=== PATIENT | female | born 1950 | race Caucasian/White ===

== ENCOUNTER → 2018-04-19 13:27 | Outpatient (CLI) | payer MEDICARE, SELFPAY ==
--- NOTE | 2018-04-19 13:33 | US_ITS ---
US ULTRASOUND THYROID PROCEDURE: Multiple sagittal & transverse ultrasound images of the thyroid. HISTORY: Follow-up thyroid nodules COMPARISON: 5:30 11/28 and 10/19/2017 ----- FINDINGS: Right thyroid nodules again noted . Normal size. Inhomogeneous pattern bilaterally with very slight lobulated gland. Contour. Mild to moderate color Doppler flow RIGHT LOBE:. 3.8 cm length as 1.9 cm wide x 1.3 cm AP Nodule A: Medial aspect upper pole 8.5 mm x 3 mm AP x 5.4 mm.. similar sized. Nodule B: 10 mm X 4.7 mm solid nodule medial aspect mid right lobe. Similar appearance no significant change when measured from same point Nodule C:vague 4.8 mm slightly hyperechoic nodule at lower pole. LEFT LOBE: 3.2 cm length x 1.2 cm wide X 1 cm AP . ISTHMUS: Normal thickness 3-3.5 mm AP IMPRESSION: 1. right lobe thyroid nodules are again observed. No significant change since prior 2017 study. . follow-up suggested 2. Mild inhomogeneous gland bilaterally. Similar to previous studies.
== END ==
PROVIDERS: PCP Family Medicine; Visit Provider Otolaryngology
DX: E06.9 Thyroiditis, unspecified (principal)
CPT/HCPCS: 76536

== ENCOUNTER → 2018-10-23 14:08 | Outpatient (CLI) | payer MEDICARE, SELFPAY ==
--- NOTE | 2018-10-23 14:11 | US_ITS ---
US thyroid HISTORY: Follow-up thyroid nodules ITS.REASON: hypothyroid ORDERING PHYSICIAN: Tre Juarez MD PATIENT AGE: 68 years Comparison: 04/19/2018 FINDINGS: Overall there is mild heterogeneous echogenicity of the thyroid gland The right lobe of the thyroid gland is 3.8 x 1.4 x 1.3 cm. Nodule A: 8 x 4 mm somewhat heterogeneous unchanged. Nodule B: Mid patellar region 10 x 7 mm unchanged. Nodule C: Lower pole solid-appearing 8 x 5 mm unchanged. The left lobe is 3.3 x 1 x 0.9 cm. No discrete nodule evident on the left. The isthmus has an unremarkable appearance. IMPRESSION: Overall no change in the right thyroid nodules compared to 04/19/2018
[2018-10-23 17:17] LABS: Free T4 (Free Thyroxine) 0.92 ng/dl (0.76-1.46); Thyroid Stimulating Hormone 2.25 uIU/ml (0.358-3.740)
== END ==
PROVIDERS: PCP Family Medicine; Visit Provider Otolaryngology
DX: E03.9 Hypothyroidism, unspecified (principal); E04.9 Nontoxic goiter, unspecified
CPT/HCPCS: 36415; 76536; 84439; 84443; 84445; 86376

== ENCOUNTER → 2018-10-23 15:00 | Outpatient (CLI) | payer MEDICARE, SELFPAY | PROVIDERS: Visit Provider Otolaryngology | DX: E03.9 Hypothyroidism, unspecified (principal); E04.9 Nontoxic goiter, unspecified | CPT/HCPCS: 36415; 76536; 84439; 84443; 84445; 86376 ==

== ENCOUNTER → 2019-04-14 10:32 | Outpatient (CLI) | payer MEDICARE, SELFPAY ==
--- NOTE | 2019-04-14 10:35 | US_ITS ---
US thyroid HISTORY: ITS.REASON: Goiter ORDERING PHYSICIAN: Tre Juarez MD PATIENT AGE: 68 years Comparison: 10/23/2018 FINDINGS: The right lobe measures 4.1 x 1.3 x 1.2 cm. In the upper pole there is a oval hypoechoic nodule measuring 7 mm unchanged. In the mid polar region there is a 9 x 7 mm slightly hypoechoic nodule unchanged. In the lower pole there is a 5 x 4 mm slightly hypoechoic nodule unchanged The left lobe is 3.3 x 1.1 x 1.2 cm. There is a 4 x 3 mm slightly hypoechoic nodule in the mid polar region. This was not demonstrated on the previous exam. The isthmus is slightly thickened on the left. IMPRESSION: Overall no change in the thyroid nodules in both lobes are described above. There are low level of suspicion for malignancy
== END ==
PROVIDERS: PCP Family Medicine; Visit Provider Otolaryngology
DX: E04.9 Nontoxic goiter, unspecified (principal)
CPT/HCPCS: 76536

== ENCOUNTER → 2019-06-06 08:45 | Outpatient (CLI) | payer MEDICARE, SELFPAY ==
--- NOTE | 2019-06-06 08:49 | MM_ITS ---
MM Dig screening mamm BI w/CAD CAD Screening COMPARISON: None, this is baseline INDICATION: There is a history of breast cancer patient's mother age at diagnosis uncertain TECHNIQUE: Standard CC and MLO images were obtained. R2 CAD reviewed. FINDINGS: Mild to moderate fibroglandular densities are seen in the central portions of both breasts. There is a possible asymmetric density with irregular borders central portion left breast best seen on the CC projection. This likely is a summation shadow however recommend the patient return for spot compression views in MLO and CC projection and possibly ultrasound of this proves to be a true lesion. There are couple benign-appearing calcifications in each breast. There is a mole marker right breast. IMPRESSION: Moderate breast density with possible asymmetric density with irregular borders left breast BI-RADS Category: 0 Need Additional Imaging Evaluation RECOMMENDED FOLLOW-UP: IMM - IMMEDIATE FOLLOW-UP RECOMMENDED (A letter has been sent to the patient regarding results of the study.)
== END ==
PROVIDERS: PCP Family Medicine; Visit Provider Family Medicine
DX: Z12.31 Encounter for screening mammogram for malignant neoplasm of breast (principal)
CPT/HCPCS: 77067

== ENCOUNTER → 2019-06-30 13:34 | Outpatient (CLI) | payer MEDICARE, SELFPAY ==
--- NOTE | 2019-06-30 13:36 | MM_ITS ---
PROCEDURE: MM DIG MAMM DX UNILAT LT CAD CLINICAL INDICATION: Follow-up abnormal mammogram COMPARISON: DIG MAMM-SCREEN ARLENE from 06/06/2019 US BREAST LT COMPLETE from 06/30/2019 TECHNIQUE: Standard CC and MLO images were obtained. R2 CAD reviewed. FINDINGS: There is average fibroglandular tissue. Scattered small asymmetric areas are present in the left breast. There was an area of asymmetry in the upper aspect of the left breast initially seen on the spot compression view which appeared to compress out on the focal spot compression view. No malignant appearing microcalcifications are evident. The Left breast ultrasound: 4 mm complex cyst at 12 o'clock, 3 mm cyst at 1 o'clock, 5 mm cyst at 8 o'clock. Small nodes are present in the axilla IMPRESSION: Probably benign findings. Scattered asymmetries may correspond to the complex cyst noted on ultrasound. Recommend six-month mammographic and sonographic follow-up BI-RAD Category: 3 Probably Benign Finding Short Term Follow-up FOLLOW-UP: 6M 6 Month Follow-up (A letter has been sent to the patient regarding results of the study.) Dictated by: Elmo Beard MD 07/07/2019 06:33 Signed by: <Electronically signed by Elmo Beard MD in [place]> 07/07/2019 06:33
--- NOTE | 2019-06-30 13:37 | US_ITS ---
PROCEDURE: US BREAST LT COMPLETE CLINICAL INDICATION: ABNORMAL MAMM COMPARISON: MM DIG MAMM DX UNILAT LT CAD from 06/30/2019 FINDINGS: 4 mm complex cyst at 12 o'clock, 3 mm cyst at 1 o'clock, 5 mm cyst at 8 o'clock. Small nodes are present in the axilla IMPRESSION: Probably benign findings. Please see mammogram report from the same day. Recommend six-month mammographic and sonographic follow-up Dictated by: Elmo Beard MD 07/07/2019 06:35 Signed by: <Electronically signed by Elmo Beard MD in [place]> 07/07/2019 06:35
== END ==
PROVIDERS: PCP Family Medicine; Visit Provider Family Medicine
DX: R92.8 Other abnormal and inconclusive findings on diagnostic imaging of breast (principal)
CPT/HCPCS: 76641; 77065

== ENCOUNTER → 2019-10-23 12:46 | Outpatient (CLI) | payer MEDICARE, SELFPAY ==
--- NOTE | 2019-10-23 12:47 | US_ITS ---
PROCEDURE: US THYROID CLINICAL INDICATION: Goiter Follow-up thyroid nodules COMPARISON: THY US thyroid from 04/14/2019 FINDINGS: The right lobe is 4 x 1.4 x 1.1 cm. No change 7 mm slightly hypoechoic oval nodule upper pole medially. No change 8 x 6 mm slightly hypoechoic nodule upper pole medially no change 4 mm mixed nodule lower pole The left lobe is 3.3 x 1 x 1 cm. No change 4 mm mixed nodule mid polar region. IMPRESSION: No change small bilateral thyroid nodules. Dictated by: Elmo Beard MD 10/24/2019 05:31 Electronically signed by Elmo Beard MD in [place] 10/24/2019 05:31
== END ==
PROVIDERS: PCP Family Medicine; Visit Provider Otolaryngology
DX: E03.9 Hypothyroidism, unspecified (principal); E04.9 Nontoxic goiter, unspecified
CPT/HCPCS: 76536

== ENCOUNTER → 2019-11-03 14:08 | Outpatient (CLI) | payer MEDICARE, SELFPAY ==
--- NOTE | 2019-11-03 14:13 | XR_ITS ---
PROCEDURE: XR DEXA AXIAL SKELETON CLINICAL INDICATION: POST MENOPAUSAL COMPARISON: No exams were available for comparison FINDINGS: Lumbar spine (L1 through L4), BMD 0.923, T-score -1.1. Left hip (neck), BMD 0.776, T-score -0.7 Left hip (Total), BMD 0.880, -0.5. Right hip (neck), BMD 0.760, T-score -0.7. Right hip (Total), BMD 0.886, T-score -0.5. IMPRESSION: Borderline mild osteopenia. Dictated by: Keegan Urbano 11/03/2019 18:41 Electronically signed by Keegan Urbano in [place] 11/03/2019 18:41
== END ==
PROVIDERS: PCP Family Medicine; Visit Provider Family Medicine
DX: Z13.820 Encounter for screening for osteoporosis (principal); Z78.0 Asymptomatic menopausal state
CPT/HCPCS: 77080

== ENCOUNTER → 2020-01-01 12:44 | Outpatient (CLI) | payer MEDICARE, SELFPAY ==
--- NOTE | 2020-01-01 12:49 | US_ITS ---
PROCEDURE: US BREAST LT COMPLETE CLINICAL INDICATION: ABNORMAL MAMM COMPARISON: US BREAST LT COMPLETE from 06/30/2019 FINDINGS: There are multiple hypoechoic probable complex cystic nodules including at the 12 o'clock position near the nipple 3.0 x 1.6 x 2.8 millimeters, and at 1 o'clock 3.1 by 3.9 x 2.7 millimeter hypoechoic nodule, and at 6 o'clock a 2.9 by 5.9 x 3.1 millimeter, and at 8 o'clock a 4.3 by 3.8 x 2.5 millimeter. These all contain some internal echoes and do not fulfill strict criteria for a benign simple cyst. All of the lesions are similar to previous exam 06/30/2019 except for the 1 at 6 o'clock. This appears new. Small nodes are seen in the axilla. IMPRESSION: BI-RADS category 3 probably benign six-month follow-up exam is recommended. Dictated by: Cisco Lizama 01/01/2020 14:47 Electronically signed by Cisco Lizama in [place] 01/01/2020 14:47
--- NOTE | 2020-01-01 12:49 | MM_ITS ---
PROCEDURE: MM DIG MAMM DX UNILAT LT CAD CLINICAL INDICATION: ABNORMAL MAMM COMPARISON: DIG MAMM-SCREEN ARLNEE from 06/06/2019 MM DIG MAMM DX UNILAT LT CAD from 06/30/2019 TECHNIQUE: Standard CC and MLO images and 3D Tomosynthesis was obtained. R2 CAD reviewed. FINDINGS: The breast is dense. Circumscribed nodule in the left breast at approximately 6 o'clock measures approximately 6 millimeters. 5 millimeter nodule in the upper outer quadrant is noted best seen on the MLO view. Findings are not significantly changed. Benign appearing lymph nodes project over the left pectoral muscle. Benign appearing calcifications are noted. IMPRESSION: BI-RAD Category: 3 probably benign FOLLOW-UP: Six-month follow-up exam is recommended. (A letter has been sent to the patient regarding results of the study.) Dictated by: Cisco Lizama 01/01/2020 15:08 Electronically signed by Cisco Lizama in [place] 01/01/2020 15:08
== END ==
PROVIDERS: PCP Family Medicine; Visit Provider Family Medicine
DX: R92.8 Other abnormal and inconclusive findings on diagnostic imaging of breast (principal)
CPT/HCPCS: 76641; 77061; 77065; G0279

== ENCOUNTER → 2020-04-26 10:13 | Outpatient (CLI) | payer MEDICARE, SELFPAY ==
--- NOTE | 2020-04-26 10:20 | XR_ITS ---
PROCEDURE: XR LUMBAR SPINE MIN 4V CLINICAL INDICATION: LUMBAGO W/SCIATICA Low back, left-sided back pain COMPARISON: No exams were available for comparison FINDINGS: No fracture or dislocation. There is 2 mm anterolisthesis of L4 on L5. Mild degenerative disc disease is present at L5-S1. Small ventral osteophytes are present and there is mild facet arthritic change at L4-L5 and S1. There is sclerosis involving the left SI joint inferiorly with hypertrophic change. IMPRESSION: Degenerative changes including left-sided sacroiliitis Dictated by: Elmo Beard MD 04/26/2020 14:06 Electronically signed by Elmo Beard MD in [place] 04/26/2020 14:06
== END ==
PROVIDERS: PCP Family Medicine; Visit Provider Family Medicine
DX: M54.42 Lumbago with sciatica, left side (principal)
CPT/HCPCS: 72110

== ENCOUNTER → 2020-07-05 12:42 | Outpatient (CLI) | payer MEDICARE, SELFPAY ==
--- NOTE | 2020-07-05 12:45 | MM_ITS ---
PROCEDURE: MM DIG MAMM BI DX W/CAD Digital Breast Tomosynthesis Included CLINICAL INDICATION: ABN MAMM There is a history of breast cancer in the patient's mother. This is a six-month follow-up exam of the left breast to evaluate stability of 2 nodular lesions. COMPARISON: MG DIG MAMM-SCREEN ARLENE from 06/06/2019 MG MM DIG MAMM DX UNILAT LT CAD from 06/30/2019 MG MM DIG MAMM DX UNILAT LT CAD from 01/01/2020 TECHNIQUE: Standard CC and MLO images and 3D Tomosynthesis was obtained. R2 CAD reviewed. FINDINGS: New moderate fibroglandular densities are seen in the central portions of both breasts and the findings are fairly symmetrical bilaterally. There are couple of benign-appearing microcalcifications in each breast. There is a mole marker on each breast and there is a stable tiny nodular density central portion left breast. There are slightly inverted nipples bilaterally but this has been noted previously. There is no suspicious lesion and no suspicious microcalcifications. IMPRESSION: Fibrofatty parenchyma with no suspicious lesions seen BI-RAD Category: 2 Benign Finding(s) FOLLOW-UP: 1YR 1 Year Follow-up (A letter has been sent to the patient regarding results of the study.) Dictated by: Dr. Naresh Kiser MD 07/11/2020 17:21 Dr. Naresh Kiser MD in [place] 07/11/2020 17:21
--- NOTE | 2020-07-05 12:45 | US_ITS ---
PROCEDURE: US BREAST LT COMPLETE CLINICAL INDICATION: ABN MAMM COMPARISON: US US BREAST LT COMPLETE from 01/01/2020 MG MM DIG MAMM BI DX W/CAD from 07/05/2020 FINDINGS: Somewhat diffuse heterogenic echogenicity is seen throughout the breast. There are multiple hypoechoic lesions representing complex cysts as noted previously. The cystic lesion at the 12 o'clock position near the nipple is stable and unchanged in size and overall appearance from the previous exam. The 1 o'clock cystic lesion is stable as well. Additional small similar-appearing hypoechoic lesions are seen at the 6 and 8 o'clock position near the nipple there is no suspicious solid lesions seen. There are normal appearing nodes in the axilla. IMPRESSION: Stable multiple benign-appearing cystic lesions some which appear to be complex with internal echoes and no additional follow-up is indicated at this time. Dictated by: Dr. Naresh Kiser MD 07/13/2020 10:46 Dr. Naresh Kiser MD in [place] 07/13/2020 10:46
== END ==
PROVIDERS: PCP Family Medicine; Visit Provider Family Medicine
DX: R92.8 Other abnormal and inconclusive findings on diagnostic imaging of breast (principal)
CPT/HCPCS: 76641; 77062; 77066; G0279

== ENCOUNTER → 2021-01-18 15:53 | Outpatient (CLI) | payer MEDICARE, SELFPAY ==
--- NOTE | 2021-01-18 16:00 | XR_ITS ---
PROCEDURE: XR FOOT RT MIN 3V CLINICAL INDICATION: RT FOOT PAIN COMPARISON: CR FTL3 FOOT-LT-3 VIEWS from 03/29/2017 CR FTL3 FOOT-LT-3 VIEWS from 06/15/2017 CR FTL3 FOOT-LT-3 VIEWS from 06/28/2017 FINDINGS: No fracture or dislocation. No lytic or blastic change. There is normal mineralization. The joint spaces are well-preserved. No significant degenerative/arthritic changes. No erosive changes evident. Other findings:None. IMPRESSION: No acute findings. Dictated by: Elmo Beard MD 01/18/2021 17:37 Elmo Beard MD in [place] 01/18/2021 17:37
== END ==
PROVIDERS: PCP Family Medicine; Visit Provider Nurse Practitioner
DX: M79.671 Pain in right foot (principal)
CPT/HCPCS: 73630

== ENCOUNTER → 2021-08-05 15:17 | Outpatient (CLI) | payer MEDICARE, SELFPAY ==
--- NOTE | 2021-08-05 15:19 | MM_ITS ---
PROCEDURE: MM DIG SCREENING MAMM BI W/CAD Digital Breast Tomosynthesis Included CLINICAL INDICATION: SCREENING There is a history of breast cancer in patient's mother. COMPARISON: MG MM DIG MAMM DX UNILAT LT CAD from 06/30/2019 MG MM DIG MAMM DX UNILAT LT CAD from 01/01/2020 MG MM DIG MAMM BI DX W/CAD from 07/05/2020 TECHNIQUE: Standard CC and MLO images and 3D Tomosynthesis was obtained. R2 CAD reviewed. FINDINGS: Mild scattered fibroglandular densities are seen throughout both breasts. Is a mole marker on each breast. CAD markings on each breast for we reviewed and they appear to be benign and mostly due to arterial calcification. There is a benign-appearing calcification in each breast. Is no suspicious lesion and no suspicious microcalcifications. IMPRESSION: Fibrofatty parenchyma with no suspicious lesions seen BI-RAD Category: 2 Benign Finding(s) FOLLOW-UP: 1YR 1 Year Follow-up (A letter has been sent to the patient regarding results of the study.) Dictated by: Dr. Naresh Kiser MD 08/18/2021 13:40 Dr. Naresh Kiser MD in [place] 08/18/2021 13:40
== END ==
PROVIDERS: PCP Family Medicine; Visit Provider Family Medicine
DX: Z12.31 Encounter for screening mammogram for malignant neoplasm of breast (principal)
CPT/HCPCS: 77063; 77067

== ENCOUNTER → 2021-10-19 09:16 | Outpatient (CLI) | payer MEDICARE, SELFPAY ==
--- NOTE | 2021-10-19 09:19 | XR_ITS ---
PROCEDURE: XR DEXA AXIAL SKELETON CLINICAL HISTORY: SCREENING FOR OSTEOPOROSIS COMPARISON: No exams were available for comparison FINDINGS: The right hip BMD is 0.772 with a T-score of -0.7. The left hip BMD is 0.725 with a T-score of -1.1. The lumbar spine BMD is 1.067 with a T-score of 0.2. IMPRESSION: This patient is considered osteopenic according to the World Health Organization criteria. Bone density is between 10 and 25 percent below young normal. Fracture risk is moderate. Treatment is advised. Based on these results a follow-up exam is recommended in 2 year. Dictated by: Elmo Beard MD 10/19/2021 16:11 Elmo Beard MD in [place] 10/19/2021 16:11
== END ==
PROVIDERS: PCP Family Medicine; Visit Provider Family Medicine
DX: Z13.820 Encounter for screening for osteoporosis (principal); Z78.0 Asymptomatic menopausal state
CPT/HCPCS: 77080

== ENCOUNTER 2021-10-31 20:42 | Emergency (ER) | payer MEDICARE, SELFPAY ==
[2021-10-31 20:45] VITALS: BP 130/70; PULSE 87; RESP 16; TEMP 37.2; O2SAT 98; BMI 27.3
[2021-10-31 20:52] VITALS: BP 130/70; PULSE 87; RESP 16; TEMP 37.2; O2SAT 98; BMI 27.4
[2021-10-31 21:52] VITALS: BP 130/70; PULSE 87; RESP 16; TEMP 37.2; O2SAT 98
--- NOTE | 2021-10-31 22:00 | HMH.EDUTC ---
[facility] [place] Clinical Impression: Sinusitis Qualifiers: Sinusitis location: unspecified location Chronicity: unspecified Qualified Code(s): J32.9 - Chronic sinusitis, unspecified Disposition: Home, Self-Care Condition on Discharge: Good Instructions: Sinusitis, DI for Sinusitis, DI for Cough -- Adult, Azithromycin, Benzonatate Additional Instructions: *Monitor Temp, Over the counter Motrin or Tylenol as directed/as needed Tylenol every 4 hours and Motrin every 6 hours (as long as your family doctor has told you that you can take it) for fever or pain. and straight to ER if unable to lower temp less than 101.0 after medication given *Warm salt water gargles may help to soothe the throat *Throat Lozenges *Warm fluids like tea with honey may help to soothe the throat *Sleep elevated *Humidifier/Vaporizer Take medication as prescribed Return if needed Follow up IMMEDIATELY for new or worsening symptoms or no Noticeable improvement over the next 48-72 hours. 911 for difficulty breathing or swallowing You were tested for today for Upper Respiratory panel with COVID19 your test result should be back in the next 24-48 hours, you Check your results on the [facility] [employer] [facility] Portal for your COVID test results if you have trouble logging on you may call You was given a handout with instructions for Self Quarantine and Self isolation for while you wait on test results and what to do if they are positive If you are positive the Health Dept will be contacting you also Make sure to take your Vitamins Vit. C Vit D and Zinc if you can take them Prescriptions: Benzonatate [Benzonatate 100mg cap] 100 mg PO Q8HP PRN #15 cap PRN Reason: Cough Transmission Status: Pending to [facility] # Azithromycin [Z-Francisco 250mg Tab] 250 mg PO DIRECTED #6 tab Transmission Status: Pending to [facility] # Referrals: Rashel Almanzar MD [Primary Care Provider] - As needed Medical Decision Making - Chaim Inquiry Pt receiving controlled substance: No Chaim was queried for this patient: No Vital Signs: 10/31/21 20:45 10/31/21 20:52 10/31/21 21:52 Temperature 98.9 F 98.9 F 98.9 F Temperature Source Oral Oral Pulse Rate 87 Pulse Rate [Right] 87 87 Respiratory Rate 16 16 16 Blood Pressure 130/70 Blood Pressure [Right Arm] 130/70 130/70 Blood Pressure Mean [Right Arm] 90 90 Blood Pressure Source [Right Arm] Automatic Cuff Automatic Cuff Blood Pressure Position [Right Arm] Sitting Sitting 02 Sat by Pulse Oximetry 98 98 Oxygen Delivery Method Room Air Room Air Orders (Tests/Meds): ORDERS Category Date Time Status Covid-19 Nasal PCR ([facility]) Routine Lab 10/31/21 21:02 [place] [facility] [place] - General Stated complaint: sore throat cough fever Time Seen by Provider: 10/31/21 22:00 Mode of Arrival: Ambulatory Source of Information: Patient Limitations: No Limitations Description of Symptoms (Recalled from Triage Doc. by RN): PT advises she has a cough and sore throat since last Sunday. Wants a covid test and something for her cough - History of Present Illness Provider Complaint: Patient states that she has had cough sore throat, sinus congestion and pressure for about a week States that tonight she was still having a cough and wanted to come in and get tested for COVID and get something for her cough and get checked - Related Data Home Medications Medication Instructions Recorded Confirmed levothyroxine 50 mcg tablet 50 mcg PO DAILY 90 Days #90 04/25/18 10/30/19 lisinopril 10 10 - 12.5 mg PO DAILY 90 Days #90 04/25/18 10/30/19 mg-hydrochlorothiazide 12.5 mg tablet Cholecalciferol (Vitamin D3) 4,000 unit PO DAILY 05/12/19 10/30/19 [Vitamin D3] Cyanocobalamin (Vitamin B-12) 1,000 mcg PO DAILY 05/12/19 10/30/19 [Vitamin B-12] Folic Acid/Vit B Complex and C 400 mcg PO DAILY 05/12/19 10/30/19 [Super B-Complex Folic-Vit C Tb] Krill/Om3/Dha/Epa/Om6/Lip/Astx 1 each PO SHILA
== END 2021-10-31 22:26 | disposition home or self-care (01) ==
LOC: ER 20:49 → UTC 20:50
PROVIDERS: Emergency Provider Nurse Practitioner; PCP Family Medicine
DX: J32.9 Chronic sinusitis, unspecified (principal); I10 Essential (primary) hypertension; E03.9 Hypothyroidism, unspecified; Z20.822 Contact with and (suspected) exposure to COVID-19; Z79.899 Other long term (current) drug therapy
CPT/HCPCS: G0463; 99202; C9803; U0003; U0005

== ENCOUNTER → 2021-11-28 14:14 | Outpatient (CLI) | payer MEDICARE, SELFPAY | PROVIDERS: Visit Provider Nurse Practitioner | DX: U07.1 COVID-19 (principal) | CPT/HCPCS: C9803; U0003; U0005 ==

== ENCOUNTER → 2022-07-12 16:27 | Outpatient (CLI) | payer MEDICARE, SELFPAY ==
--- NOTE | 2022-07-12 16:32 | MR_ITS ---
PROCEDURE INFORMATION: Exam: MR Lumbar Spine Without Contrast Exam date and time: 07/12/2022 4:36 PM Age: 71 years old Clinical indication: Pain; Lumbago with sciatica; Left; Additional info: Lower back pain with left side sciatica TECHNIQUE: Imaging protocol: Magnetic resonance imaging of the lumbar spine without contrast. COMPARISON: CR XR LUMBAR SPINE MIN 4V 04/26/2020 10:40 AM FINDINGS: Bones/joints: The lumbar vertebral bodies are normal in height, without abnormal subluxation. A small sacral meningeal cyst is visualized. Spinal cord: The distal end of the conus medullaris ends at L1-L2, normal in position. Multilevel findings: Degenerative changes are noted from L3-L4 through L5-S1, with a decrease in the T2 signal intensity of the discs as well as disc bulge/osteophyte complexes. T10-T11: Minimal disc bulging at T10-11 without significant spinal canal stenosis. T12-L1: At T12-L1, a T2 hyperintense probable perineural cyst is seen within the right neural foramen. No significant spinal canal stenosis at this level. L1-L2: No significant spinal canal stenosis. A tiny perineural cyst is seen within each neural foramen, without significant neural foraminal narrowing. L2-L3: Hypertrophy of the ligamentum flavum. There is no significant narrowing of the thecal sac or neural foramina. L3-L4: Bilateral facet arthropathy with hypertrophy of the ligamentum flavum. A broad-based disc bulge is identified, with mild spinal canal stenosis. Mild bulging into the neural foramina, without significant neural foraminal narrowing bilaterally. L4-L5: Bilateral facet arthropathy with hypertrophy of the ligamentum flavum. A broad-based disc bulge is identified, with minimal spinal canal stenosis. Narrowing of the lateral recesses. Mild bilateral neural foraminal narrowing. L5-S1: Bilateral facet arthropathy. A left-sided disc herniation is visualized, which posteriorly displaces and compresses the left S1 nerve root within the left lateral recess. Mild narrowing of the lateral cook of the thecal sac at this level. There is slight narrowing of the neural foramina bilaterally. Soft tissues: Minimal soft tissue swelling posteriorly. Kidneys and ureters: At the midpole of the right kidney, there is a complex cyst or cystic lesion partially visualized measuring 3.3 cm in diameter. This is hyperintense on T2 and isointense on T1. IMPRESSION: 1. Degenerative changes are identified involving the lumbar spine, as described above. 2. At L5-S1, a left-sided disc herniation is visualized, which posteriorly displaces and compresses the left S1 nerve root within the left lateral recess. Mild narrowing of the lateral cook of the thecal sac at this level. 3. Mild spinal canal stenosis at L3-L4, with minimal spinal canal stenosis at L4-L5. 4. Neural foraminal narrowing at L4-L5 and L5-S1. 5. At the midpole of the right kidney, there is a complex cyst or cystic lesion measuring 3.3 cm in diameter. Follow-up ultrasonography recommended.
== END ==
PROVIDERS: PCP Family Medicine; Visit Provider Family Medicine
DX: M54.42 Lumbago with sciatica, left side (principal); M47.816 Spondylosis without myelopathy or radiculopathy, lumbar region; M51.36 Other intervertebral disc degeneration, lumbar region
CPT/HCPCS: 72148; 76376

== ENCOUNTER → 2022-07-21 13:52 | Outpatient (CLI) | payer MEDICARE, SELFPAY ==
--- NOTE | 2022-07-21 13:59 | US_ITS ---
FINAL REPORT TECHNIQUE: Sonographic images were obtained of the retroperitoneum. CLINICAL HISTORY: RENAL CYST seen on recent mri FINDINGS: There is fatty infiltration of the liver. The right kidney measures 10.8 cm. The left kidney measures 10.2 cm. There is a 3.6 cm lower pole right renal cyst. The spleen measures 11.6 cm. T IMPRESSION: Right renal cyst. Fatty liver. Reviewed, Interpreted and Dictated by Gamaliel Talamantes III, MD Transcribed by Yovani Ventura Authenticated and [facility]
== END ==
PROVIDERS: PCP Family Medicine; Visit Provider Family Medicine
DX: N28.1 Cyst of kidney, acquired (principal)
CPT/HCPCS: 76770

== ENCOUNTER 2023-04-27 17:09 | Emergency (ER) | payer OTHER, MEDICARE, SELFPAY ==
[2023-04-27 17:07] VITALS: BP 164/89; PULSE 115; RESP 20; TEMP 36.6; O2SAT 98
--- NOTE | 2023-04-27 17:07 | ECG_ITS ---
APPROVED REPORT Exam: Resting ECG HR:104 bpm ECG Measurements Heart Rate 104 AXES OK 141 P 15 QRSd 91 QRS 1 QT 332 T 18 QTc 392 Conclusion SINUS TACHYCARDIA WITH OCCASIONAL VENTRICULAR PREMATURE COMPLEXES PROBABLE INFERIOR MYOCARDIAL INFARCTION , PROBABLY OLD [35 ms Q WAVE IN II/aVF] ABNORMAL ECG UNCONFIRMED REPORT Electronically signed by : Christopher Angeles MD 04/28/2023 11:22:00
--- NOTE | 2023-04-27 17:09 | PC.NURSE ---
Dr. Christianson cleared c-spine, c-collar removed by provider and sat upright.
[2023-04-27 17:13] VITALS: BMI 28.7
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
[2023-04-27 17:15] VITALS: BMI 28.7
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
[2023-04-27 17:30] VITALS: BP 144/81; PULSE 102; RESP 24; O2SAT 98
--- NOTE | 2023-04-27 17:34 | PC.NURSE ---
Pt reports midsternal chest pain only when moving/palpating. Declines pain medication at this time. Family remains at bedside. Pt upright position.
[2023-04-27 17:45] VITALS: BP 153/79; PULSE 99; RESP 22; O2SAT 97
[2023-04-27 17:48] LABS: Basophils # 0.1 K/mm3 (0-0.2); Basophils % 0.6 % (0.1-2.0); Eosinophils # 0.2 K/mm3 (0.0-0.4); Eosinophils % 2.1 % (0.1-12.0); Hematocrit 37.2 % (37.0-47.0); Hemoglobin 12.5 g/dL (12.2-16.2); Lymphocytes # 2.4 K/mm3 (0.7-4.5); Lymphocytes % 25.8 % (10-50); Mean Corpuscular HGB Conc 33.7 g/dL (31.8-35.4); Mean Corpuscular Hemoglobin 30.8 pg (27.0-31.2); Mean Corpuscular Volume 91.3 fl (81-99); Mean Platelet Volume 7.8 fl (7.4-10.4); Monocytes # 0.4 K/mm3 (0.1-1.0); Monocytes % 4.2 % (1.7-9.3); Neutrophils # 6.3 K/mm3 (1.8-7.8); Neutrophils % 67.3 % (37.0-80.0); Platelet Count 371 K/mm3 (142-424); Red Blood Count 4.07 M/mm3 (4.20-5.40); Red Cell Distribution Width 14.2 % (11.5-17.5); White Blood Count 9.3 K/mm3 (4.8-10.8)
[2023-04-27 17:52] LABS: Alanine Aminotransferase 117 U/L (12-78); Albumin Level 4.8 g/dl (3.5-5.0); Albumin/Globulin Ratio 1.3 (1.1-1.8); Alkaline Phosphatase 90 U/L (38-126); Anion Gap 19.1 mEq/L (5-15); Aspartate Amino Transferase 114 U/L (14-36); Bilirubin,Total 0.9 mg/dl (0.2-1.3); Blood Urea Nitrogen 26 mg/dl (7-17); Calcium 9.6 mg/dl (8.4-10.2); Carbon Dioxide 23 mmol/L (22.0-30.0); Chloride 102 mmol/L (98-107); Creatinine Clearance Estimated 59 mL/min (50-200); Estimated Glomerular Filt Rate 49 ml/min (>60); GFR (African American) 59 ML/MIN (>60); Globulin 3.6 g/dL (1.3-3.2); Glucose 153 mg/dl (74-100); Lipase 165 U/L (23-300); Potassium 3.1 mmoL/L (3.5-5.1); Sodium 141 mmol/L (136-145); Total Protein,Serum 8.4 g/dl (6.3-8.2)
[2023-04-27 18:00] VITALS: BP 141/90; PULSE 102; RESP 18; O2SAT 97
[2023-04-27 18:06] LABS: Troponin I < 0.01 ng/ml (0.00-0.034)
[2023-04-27 18:15] VITALS: BP 141/90; PULSE 99; RESP 18; TEMP 36.6; O2SAT 97
--- NOTE | 2023-04-27 19:27 | PC.NURSE ---
Patients daughter called requesting that her mothers rx's be sent to [facility] instead of [facility] since [facility] is closed for the weekend. [facility] added to pharmacy and two rx's were retransmitted to [facility].
== END 2023-04-27 18:33 | disposition home or self-care (01) ==
PROVIDERS: Emergency Provider Student in an Organized Health Care Education/Training Program; PCP Family Medicine
DX: R07.89 Other chest pain (principal); S20.211A Contusion of right front wall of thorax, initial encounter; V49.40XA Driver injured in collision with unspecified motor vehicles in traffic accident, initial encounter
CPT/HCPCS: 71045; 80053; 83690; 84484; 85025; 93005; 96374; 99285

== ENCOUNTER 2024-01-03 14:51 | Emergency (ER) | payer MEDICARE, SELFPAY ==
[2024-01-03 16:05] VITALS: BP 137/83; PULSE 90; RESP 19; TEMP 36.9; O2SAT 97; BMI 27.4
--- NOTE | 2024-01-03 16:14 | ED_ITS ---
Discharge Plan Disposition Patient Disposition: Home, Self-Care Condition: Good Prescriptions Prescriptions: New ondansetron 4 mg tablet,disintegrating 4 mg PO Q8H PRN (Reason: nausea and vomiting) Qty: 12 0RF No Action valsartan-hydrochlorothiazide 160-12.5 mg tablet 1 tab PO DAILY Patient Comments: TAKE 1 TABLET BY MOUTH EVERY DAY probenecid-colchicine 500-0.5 mg tablet 1 tab PO DAILY Patient Comments: TAKE 1 TABLET BY MOUTH EVERY DAY allopurinol 100 mg tablet 100 mg PO DAILY Patient Comments: TAKE 1 TABLET BY MOUTH EVERY DAY levothyroxine 50 mcg tablet 50 mcg PO DAILY Patient Comments: TAKE 1 TABLET BY MOUTH EVERY DAY Referrals Follow up/Referrals: Rashel Almanzar MD [Primary Care Provider] - See instructions Activity Restrictions/Add. Instructions Additional Instructions/Restrictions: *Monitor Temp, Over the counter Motrin or Tylenol as directed/as needed Tylenol every 4 hours and Motrin every 6 hours (as long as your family doctor has told you that you can take it) for fever or pain. and straight to ER if unable to lower temp less than 101.0 after medication given *Warm salt water gargles may help to soothe the throat *Throat Lozenges? *Warm fluids like tea with honey may help to soothe the throat? *Sleep elevated *Humidifier/Vaporizer Drink extra fluids with and between meals. If you have difficulty drinking, try very small amounts of water or suck on ice chips. ? Avoid fruit juices, as these do not replace minerals and can actually increase diarrhea. ? Children and adults can use sports drinks to replenish electrolytes. Younger children and infants should use products formulated for children, like oral rehydration solutions. ? Eat food in small amounts and let your stomach recover. ? Get lots of rest. You may feel tired or weak. ? No greasy or fried foods for the next 24-48 hours BRAT diet Bananas Rice Apples and [place] ? Make sure to drink plenty of liquids ? Return if needed ? Straight to ER if any life threatening symptoms ? Zofran as prescribed ? Follow up with family doctor in the next 48-72 hours if no improvement or any worsening of symptoms Follow up IMMEDIATELY for new or worsening symptoms or no Noticeable improvement over the next 48-72 hours. 911 for difficulty breathing or swallowing Clinical Impressions Clinical Impression: Viral syndrome Instructions Patient Instructions: DI for Viral Syndrome Discharge ED Provider: Dafne Shen [facility] HPI General Stated complaint: vomiting,fever, chills Time Seen by Provider: 01/03/24 16:14 History of Present Illness Provider Complaint: Patient states that she started last night with chills, body aches, N/V/D States that she has had some symptoms today also States she over all feels flu like so she came in to get checked Related Data Home Medications Medication Instructions Recorded Confirmed allopurinol 100 mg tablet 100 mg PO DAILY 01/03/24 01/03/24 levothyroxine 50 mcg tablet 50 mcg PO DAILY 01/03/24 01/03/24 probenecid 500 mg-colchicine 0.5 1 tab PO DAILY 01/03/24 01/03/24 mg tablet valsartan 160 1 tab PO DAILY 01/03/24 01/03/24 mg-hydrochlorothiazide 12.5 mg tablet Previous Rx's Medication Instructions Recorded ondansetron 4 mg disintegrating 4 mg PO Q8H PRN nausea and 01/03/24 tablet vomiting #12 tabs Allergies Allergy/AdvReac Type Severity Reaction Status Date / Time No Known Allergies Allergy Verified 10/30/19 13:17 [facility] Disclaimer: The information contained in this section may have been updated after the patient was seen, as this information can be updated by other users. Medical History (Updated 01/03/24 @ 16:32 by Dafne Shen APRN) Diabetes mellitus, type 2 Hypertension Thyroid disease Surgical History (Updated 01/03/24 @ 16:24 by Beena Pittman RN) History of tubal ligation Social History Smoking Status: Never smoker alcohol intake: never substance use type: denies use current occupational status: retired Travel in the last 8 weeks: None caffeine: No ROS Obtained: Yes All systems reviewed & no additional complaints except as documented and Yes Systems reviewed as appropriate & no additional complaints except as documented Constitutional Constitutional: Reports system reviewed and no additional complaints, except as documented, Reports as per HPI, Reports body ache, Reports fever(s) and Reports headache(s) ENT Ears, Nose, Mouth, and Throat: Reports system reviewed and no additional complaints, except as documented, Reports as per HPI and Reports headache(s) Cardiovascular Cardiovascular: Reports system reviewed and no additional complaints, except as documented and Reports as per HPI Respiratory Respiratory: Reports system reviewed and no additional complaints, except as documented and Reports as per HPI Gastrointestinal Gastrointestingal: Reports system reviewed and no additional complaints, except as documented, as per HPI, diarrhea, nausea and vomiting; Denies abdominal pain or cramping Neurologic Neurologic: Reports headache(s) Physical Exam General General appearance: alert and in no apparent distress ENT ENT exam: Present mucous membranes moist Respiratory Respiratory exam: Present normal lung sounds bilaterally; Absent respiratory distress or wheezes Cardiovascular Cardiovascular exam: Present regular rate, normal rhythm and normal heart sounds Neurological Exam Neurological exam: Present alert, oriented X3 and normal gait Medical Decision Making Chaim Inquiry Pt receiving controlled substance: No Chaim was queried for this patient: No Lab Data Lab results reviewed: Yes I reviewed the patient's lab results.
[2024-01-03 16:35] LABS: UTC Influenza A Antigen Negative (Negative); UTC Influenza B Antigen Negative (Negative)
[2024-01-03 16:42] VITALS: BP 137/83; PULSE 90; RESP 19; TEMP 36.9; O2SAT 97
[2024-01-03 16:50] LABS: Adenovirus,PCR Not Detected (NotDetected); Coronavirus 19, PCR Not Detected (NotDetected); Coronavirus 229E Not Detected (NotDetected); Coronavirus NL63 Not Detected (NotDetected); Coronavirus OC43 Not Detected (NotDetected); Coronovirus HKU1,PCR Not Detected (NotDetected); Human Metapneumovirus Not Detected (NotDetected); Influenza A, PCR Not Detected (NotDetected); Influenza AH1, 2009 Not Detected (NotDetected); Influenza AH1, PCR Not Detected (NotDetected); Influenza AH3,PCR Not Detected (NotDetected); Influenza B, PCR Not Detected (NotDetected); Parainfluenza 1, PCR Not Detected (NotDetected); Parainfluenza 2, PCR Not Detected (NotDetected); Parainfluenza 3, PCR Not Detected (NotDetected); Parainfluenza 4, PCR Not Detected (NotDetected); Respiratory Syncytial Virus Not Detected (NotDetected); Rhinovirus/Enterovirus Not Detected (NotDetected)
== END 2024-01-03 16:50 | disposition home or self-care (01) ==
PROVIDERS: Emergency Provider Nurse Practitioner; PCP Family Medicine
DX: R11.2 Nausea with vomiting, unspecified (principal); R50.9 Fever, unspecified; R51.9 Headache, unspecified; B34.9 Viral infection, unspecified; E03.9 Hypothyroidism, unspecified; I10 Essential (primary) hypertension
CPT/HCPCS: 87632; 87635; 87804; 99212; 99214; G0463

== ENCOUNTER 2024-05-21 08:15 | Outpatient (CLI) | payer MEDICARE, SELFPAY ==
--- NOTE | 2024-05-21 08:31 | MM_ITS ---
PROCEDURE INFORMATION: Exam: MG Bilateral Screening 3D Mammography Exam date and time: 05/21/2024 8:22 AM Age: 73 years old Clinical indication: Screening examination TECHNIQUE: Imaging protocol: Bilateral Screening tomosynthesis and 2D mammography including computer-aided detection (CAD) when performed. COMPARISON: 1. MG MM DIG SCREENING MAMM BI W/CAD 08/05/2021 3:19 PM 2. MG MM DIG MAMM BI DX W/CAD 07/05/2020 12:55 PM FINDINGS: MAMMOGRAPHY: Breast composition: There are scattered areas of fibroglandular density. Mass: None. Architectural distortion: None. Calcifications: No suspicious calcifications. Asymmetric density: None. Skin thickening: None. Axillary adenopathy: None. IMPRESSION: No mammographic evidence of malignancy. Annual screening is recommended unless otherwise clinically indicated. ASSESSMENT: BI-RADS Category 1: Negative
== END 2024-05-21 23:59 | disposition home or self-care (01) ==
LOC: RAD 08:16
PROVIDERS: PCP Family Medicine; Visit Provider Family Medicine
DX: Z12.31 Encounter for screening mammogram for malignant neoplasm of breast (principal)
CPT/HCPCS: 77063; 77067

== ENCOUNTER 2024-06-11 09:02 | Outpatient (CLI) | payer MEDICARE, SELFPAY ==
--- NOTE | 2024-06-11 09:09 | XR_ITS ---
FINAL REPORT TECHNIQUE: Bone densitometry calculations of the lumbar spine and left hip were obtained. CLINICAL HISTORY: SCREENING COMPARISON: 10/19/2021 FINDINGS: Using L1-4, the bone mineral density of the spine is 1.064 g/cm2, corresponding to T-score of 0.2. Using the left hip, the bone mineral density of the femoral neck is 0.848 g/cm2, corresponding to a T-score of -0.8. NOTE: T-score: Standard deviation compared with peak bone mass of young adult mean. *Following the recommendations of the International Society of Bone densitometry, classification of hip BMD is based on the lower of two T-scores; total hip or femoral neck. IMPRESSION: Normal bone mineral density of the lumbar spine and hip. Reviewed, Interpreted and Dictated by Nestor Uribe MD Transcribed by Martha Watermna Authenticated and [facility]
== END 2024-06-11 23:59 | disposition home or self-care (01) ==
LOC: RAD 09:02
PROVIDERS: PCP Family Medicine; Visit Provider Family Medicine
DX: Z13.820 Encounter for screening for osteoporosis (principal)
CPT/HCPCS: 77080

== ENCOUNTER 2025-04-29 07:02 | Outpatient (CLI) | payer MEDICARE, SELFPAY ==
--- OUTSIDE RECORDS SUMMARY | 2024-10-23 05:15 | XMS_ITS ---
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 Role Phone Rashel Almanzar Primary Care Provider [phone] Allergies No Known Allergies Results Component Value Reference Range Notes Glucose (In-House) Reviewed date:10/24/2024 03:19:24 PM Interpretation:174 Performing Lab: Notes/Report: 174 blood glucose 174 74 - 106 mg/dL CBC Venipuncture (in house) Reviewed date:10/24/2024 03:19:24 PM Interpretation: Performing Lab: Notes/Report: wbc 5.8 3.5 - 10 lymph 31.2% 15 - 50 mid 6.7% 2 - 15 gran 62.1% 35 - 80 rbc 4.49 3.5 - 5.5 hgb 14.1 11.5 - 16.5 hct 40.4 35 - 55 mcv 90.0 75 - 100 mch 31.4 25 - 35 mchc 34.8 31 - 38 platlet 256 100 - 400 Glycohemoglobin A1c (in hous e) Reviewed date:10/24/2024 03:19:24 PM Interpretation:6.2% Performing Lab: Notes/Report: 6.2% glycohemoglobin 6.2% 5 - 6.5 % P-Comprehensive Metabolic Pa khadijah (CMP) Reviewed date:10/24/2024 03:19:24 PM Interpretation:CO2 19, glu 120, BUN 28, Creat 1.15, eGFR 50 Performing Lab: Notes/Report: Test performed by [facility] [address] [facility] [address] [place] [address] [address] Baptiste C, [place] [address] Vern Garcia MD, Organ Tuner CLIA: [id number] Sodium 141 135-145 mmol/L Potassium 3.8 3.5-5.3 mmol/L Chloride 105 97-108 mmol/L CO2 19 22-32 mmol/L Glucose 120 65-99 mg/dL BUN 28 8-23 mg/dL Creatinine 1.15 0.50-1.00 mg/dL Calcium 9.7 8.6-10.4 mg/dL eGFR by Creatinine 50 >59 mL/min/1.73m2 Protein 7.7 6.0-8.3 g/dL Albumin 4.6 3.5-5.3 g/dL Alkaline Phosphatase 73 35-121 IU/L ALT (SGPT) 23 <5-47 IU/L AST (SGOT) 25 <5-40 IU/L Bilirubin, Total 0.6 <0.2-1.2 mg/dL A/G Ratio 1.5 1.1-2.5 P-Lipid Panel Reviewed date:10/24/2024 03:19:24 PM Interpretation:Chol 219, Trig 153, chol/hdl 4.98, non hdl 175, ldl 144, ldl/hdl 3.3 Performing Lab: Notes/Report: Test performed by [facility] [address] [place] [address] [address]ena Baptiste C, [place] [address] Vern Garcia MD, Organ Tuner CLIA: [id number] Cholesterol 219 <200 mg/dL Triglycerides 153 <150 mg/dL HDL Cholesterol 44 >39 mg/dL Cholesterol / HDL Ratio 4.98 0.00-4.44 Ratio Non-HDL Cholesterol 175 <130 mg/dL LDL Cholesterol (Calculation) 144 <130 mg/dL LDL Cholesterol Levels* Less than 100 mg/dL Optimal 100 to 129 mg/dL Near Optimal/ Above Optimal 130 to 159 mg/dL Borderline High 160 to 189 mg/dL High 190 mg/dL and above Very High * Categories as recommended by the 2004 ATPIII guidelines LDL/HDL Ratio 3.3 <3.3 Ratio LDL Cholesterol Patient History Test Date: 04/17/2023 LDL Results: 136 Units: mg/dL % Change: - Test Date: 04/23/2024 LDL Results: 121 Units: mg/dL % Change: -11% Test Date: 10/23/2024 LDL Results: 144 Units: mg/dL % Change: +19% P-Phosphorus Reviewed date:10/24/2024 03:19:24 PM Interpretation:Normal Performing Lab: Notes/Report: Test performed by [facility] [address] [facility] , [address], [place] [address] Vern Garcia MD, Organ Tuner CLIA: [id number] Phosphorus 3.9 2.5-4.5 mg/dL REASON FOR VISIT 6 months Medications Medication SIG (Take, Route, Frequency, Duration) Notes Start Date End Date Status Levothyroxine Sodium 50 MCG TAKE 1 TABLE T BY MOUTH EVERY DAY for 90 Active Valsartan-hydroCHLOROthiazid e 160-12.5 MG 1 tab(s) orally once a day for 90 days Active Colchicine-Probenecid 0.5-500 MG 1 tablet Orally once a day for 30 days Active Allopurinol 100 MG TAKE 1 TABLET BY NICKIE TH DAILY for 90 Active Magnesium Gluconate 250 MG 1 tab(s) oral ly 2 times a day Active MegaRed Advanced 4 in 1 - as directed Orally Active Zinc 50 MG 1 tab(s) orally once a day Active Super B-Complex - 1 tab(s) orally once a day Active Vitamin D3 125 MCG (5000 UT) 1 cap(s) or ally once a day Active Coenzyme Q10 300 MG 1 cap(s) orally once a day Active Probiotic - as directed Orally Active Tylenol 8 Hour 650 MG 2 tablets as neede d Orally every 8 hrs Active Potassium 99 MG 1 tablet Orally Once a day for 30 day(s) Active Vital Signs Weight 175.4 lbs 10/23/2024 Blood pressure systolic 114 mm Hg 10/23/20 24 Blood pressure diastolic 70 mm Hg 024 Heart Rate 82 /min 10/23/2024 Height 66 in 10/23/2024 BMI 28.31 kg/m2 10/23/2024 Encounters Encounter Location Date Provider Diagnosis [facility] [address] [id number] 10/23/2024 Rashel Almanzar Type 2 diabetes dragan itus without complication, without long-term current use of insulin E11.9 ; Stage 3a chronic kidney disease N18.31 and Pure hypercholesterolemia E78.00 Assessments Encounter Date Diagnosis (ICD Code) Assessment Notes Treatment Notes Treatment Clinical Notes Section Notes 10/23/2024 Type 2 diabetes dragan itus without complication, without long-term current use of insulin (ICD-10 - E11.9) 10/23/2024 Stage 3a chronic kid norm disease (ICD-10 - N18.31) Discussed starting an SGLT-2 10/23/2024 Pure hypercholesterolemia (ICD-10 - E78.00) Plan Of Treatment Treatment Notes Assessment Notes Stage 3a chronic kidney disease Discusse d starting an SGLT-2 Next Appt Details Follow Up: 6 Months, Reason: Provider Name:Rashel Thompson ry, 10/23/2025 09:45:00 AM, [address], [address], [place], [place], [id number], Progress Notes * ZAINA PINEDAEDOB:1950 (74 yo F)Acc No.[id number]:10/23/2024 Progress Notes Patient: RYANN CHATMAN Provider: Carmelina Almanzar M.D. :1950 A ge:74 Y S ex:Female Date:10/23/2024 Address:[facility] [address], [place], [id number] Subjective: * Chief Complaints: * 1 . 6 months. * HPI: C ardiology: 74 year old female presents with c/o Blood Pressure Elevated?Pt here for 6 mo f/u on hypertension, states she is doing well and does not have any concerns.? c/o Hyperlipidemia P t is fasting today. E ndocrinology: c/o Recent Blood Sugars P t here to f/u on DM 2, pt states she check blood sugar at home and it is 120-125 in the morning. * ROS: D ERMATOLOGY: no R binu. n o H jazmyne. G ASTROENTEROLOGY: no N ausea. n o V omiting. U ROLOGY: no D ifficulty urinating. n o B lood in urine. * Medical History: T ype 2 Diabetes, Hypertension, Hypothyroidism, Impaired Fasting Glucose, Hyperlipidemia, Colon Polyps, Low back pain, see xrays from 2019, Lumbar facet arthropathy, Lumbar Disc Disease. * Surgical History: B ilateral Tubal Ligation , Cyst removal on toe - Left foot 06/2017, colonoscopy 2018. * Hospitalization/Major Diagno stic Procedure: D enies Past Hospitalization. * Family History: F ather: 76 yrs, diagnosed with Mental Illness. M other: 69 yrs, diagnosed with Cancer. S iblings: alive, diagnosed with Heart Disease, Mental Illness, Cancer. C hildren: alive. 4 brother(s) , 5 sister(s) . 1 son(s) , 2 daughter(s) . . Father - Dementia\nMother - Breast to Bone Cancer\nSiblings - Dementia, Lung Cancer,. * Social History: C URRENT TOBACCO USE S moking Status: P atient does NOT smoke, F ormer Smoker:?Yes Stopped smoking in the . Pt states that she was 30 and smoked for 10 years, 2 packs a day, S moking pack year history: 2 . * Medications: T aking Tylenol 8 Hour 650 MG Tablet Extended Release 2 tablets as needed Orally every 8 hrs , Taking Probiotic - Tablet Delayed Release as directed Orally , Taking Potassium 99 MG Tablet 1 tablet Orally Once a day , Taking MegaRed Advanced 4 in 1 - Capsule as directed Orally , Taking Super B-Complex - Tablet 1 tab(s) orally once a day , Taking Zinc 50 MG Tablet 1 tab(s) orally once a day , Taking Vitamin D3 125 MCG (5000 UT) Capsule 1 cap(s) orally once a day , Taking Coenzyme Q10 300 MG Capsule 1 cap(s) orally once a day , Taking Magnesium Gluconate 250 MG Tablet 1 tab(s) orally 2 times a day , Taking Valsartan-hydroCHLOROthiazide 160-12.5 MG Tablet 1 tab(s) orally once a day , Taking Levothyroxine Sodium 50 MCG Tablet TAKE 1 TABLET BY MOUTH EVERY DAY , Taking Allopurinol 100 MG Tablet TAKE 1 TABLET BY MOUTH DAILY , Taking Colchicine-Probenecid 0.5-500 MG Tablet 1 tablet Orally once a day , Medication List reviewed and reconciled with the patient * Allergies: N .K.D.A. Objective: * Vitals: W t:175.4, Temp:97.8, BP:114/70, HR:82, Nurse:charo, Ht: 66, BMI:28.31. * Examination: C ardiology: General Appearance: p leasant, NAD. HEENT: u nremarkable. Heart sounds: R RR, normal S1, S2. Lungs: c lear, no rales or wheezes. Extremities: n o leg edema. Peripheral pulses: 2 plus bilateral. ? Assessment: * Assessment: 1. T ype 2 diabetes mellitus without complication, without long-term current use of insulin - E11.9 (Primary) 2 . S tage 3a chronic kidney disease - N18.31 3 .?Pure hypercholesterolemia - E78.00 Plan: * Treatment: Value Reference Range b lood glucose 174 74 - 106 mg/dL * Kaylah Neri 10/23/2024 10:19: 38 AM > Katharine Meehan 10/24/2024 3:18:48 PM >See phone encounter ?LAB: Glycohemoglobin A1c (in house) (Collection Date & Time - 10/23/2024)? 6.2%* Value Reference Range g lycohemoglobin 6.2% 5 - 6.5 % * Kaylah Neri 10/23/2024 10:19: 57 AM > Katharine Meehan 10/24/2024 3:18:48 PM >See phone encounter 2.?Stage 3a chronic kidney disease?LAB: P-Comprehensive Metabolic Panel (CMP) (Collection Date & Time - 10/23/2024 10:57 AM)?CO2 19, glu 120, BUN 28, Creat 1.15, eGFR 50* Value Reference Range A /G Ratio 1.5 1.1-2.5 - * A lbumin 4.6 3.5-5.3 - g/dL * A lkaline Phosphatase 73 35-121 - IU/L * A LT (SGPT) 23 <5-47 - IU/L * A ST (SGOT) 25 <5-40 - IU/L * B ilirubin, Total 0.6 <0.2-1.2 - mg/dL * B UN 28 H 8-23 - mg/dL * C alcium 9.7 8.6-10.4 - mg/dL * C hloride 105 97-108 - mmol/L * C O2 19 L 22-32 - mmol/L * C reatinine 1.15 H 0.50-1.00 - mg/dL * G lucose 120 H 65-99 - mg/dL * P otassium 3.8 3.5-5.3 - mmol/L * S odium 141 135-145 - mmol/L * P rotein 7.7 6.0-8.3 - g/dL * e GFR by Creatinine 50 L >59 - mL/min/1.73m2 * ZoranKatharine 10/24/2024 3:1 8:48 PM >See phone encounter ?LAB: P-Phosphorus (Collection Date & Time - 10/23/2024 10:57 AM)?Normal* Value Reference Range P hosphorus 3.9 2.5-4.5 - mg/dL * Katharine Meehan 10/24/2024 3:1 8:48 PM >See phone encounter ?LAB: CBC Venipuncture (in house) (Collection Date & Time - 10/23/2024)* Value Reference Range w bc 5.8 3.5 - 10 * l ymph 31.2% 15 - 50 * m id 6.7% 2 - 15 * g ran 62.1% 35 - 80 * r bc 4.49 3.5 - 5.5 * h gb 14.1 11.5 - 16.5 * h ct 40.4 35 - 55 * m cv 90.0 75 - 100 * m ch 31.4 25 - 35 * m chc 34.8 31 - 38 * p latlet 256 100 - 400 * KingKaylah 10/23/2024 10:21: 25 AM > Katharine Meehan 10/24/2024 3:18:48 PM >See phone encounter Notes: Discussed starting an SGLT-2??3.?Pure hypercholesterolemia?LAB: P-Lipid Panel (Collection Date & Time - 10/23/2024 10:57 AM)?Chol 219, Trig 153, chol/hdl 4.98, non hdl 175, ldl 144, ldl/hdl 3.3* Value Reference Range C holesterol / HDL Ratio 4.98 H 0.00-4.44 - Ratio * C holesterol 219 H <200 - mg/dL * H DL Cholesterol 44 >39 - mg/dL * L DL Cholesterol (Calculation) 144 H <130 - mg/d L * L DL/HDL Ratio 3.3 H <3.3 - Ratio * N on-HDL Cholesterol 175 H <130 - mg/dL * T riglycerides 153 H <150 - mg/dL * Katharine Meehan 10/24/2024 3:1 8:48 PM >See phone encounter * Procedure Codes: G 2211 Complex e/[place], [address] GLUCOSE TEST, 63379 GLYCATED HEMOGLOBIN TEST, Modifiers: QW , 29049 CBC WITH AUTO DIFF * Follow Up: 6 Months * Billing Information: * Visit Code: 55813 Office Visit, Est Pt., Level 4. * Procedure Codes: G2211 Complex e/[place]. [address] GLUCOSE TEST. 68049 GLYCATED HEMOGLOBIN TEST. Modifiers: QW 88872 CBC WITH AUTO DIFF. * Electronic signature of Dominique Almanzar MD on 04/29/2025 at 07:05 AM EDT Sign off status: Pending * Provider: Carmelina Almanzar M.D. Date: 1 12/24/2023 Generated for Printi ng/Fabrynng/eTransmitting on: 0 04/29/2025 07:05 AM EDT History and Physical Notes * HPI (History of Present Illness) Category Sub-Category Detail Notes Category Not es Endocrinology Recent Blood Sugars Pt here to f /u on DM 2, pt states she check blood sugar at home and it is 120-125 in the morning Cardiology Blood Pressure Elevated Pt here for 6 mo f/u on hypertension, states she is doing well and does not have any concerns Hyperlipidemia Pt is fasting today Examination Category Sub-Category Detail Notes Category Not es Cardiology Lungs: clear, no rales or wheezes HEENT: unremarkable Heart sounds: RRR, normal S1, S2 Extremities: no leg edema Peripheral pulses: 2 plus bilateral General Appearance: pleasant, NAD
--- OUTSIDE RECORDS SUMMARY | 2025-04-23 05:15 | XMS_ITS ---
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 Name Role Phone Rashel Almanzar Primary Care Provider [phone] Allergies No Known Allergies Results Component Value Reference Range Notes Glucose (In-House) Reviewed date:04/24/2025 10:46:09 AM Interpretation:127 Performing Lab: Notes/Report: 127 blood glucose 127 74 - 106 mg/dL CBC Venipuncture (in house) Reviewed date:04/23/2025 10:21:32 AM Interpretation: Performing Lab: Notes/Report: wbc 11.1 3.5 - 10 lymph 21.6 15 - 50 mid 5.2 2 - 15 gran 73.2 35 - 80 rbc 3.61 3.5 - 5.5 hgb 11.3 11.5 - 16.5 hct 33.0 35 - 55 mcv 91.4 75 - 100 mch 31.4 25 - 35 mchc 34.3 31 - 38 platlet 337 100 - 400 Glycohemoglobin A1c (in hous e) Reviewed date:04/24/2025 10:46:09 AM Interpretation:6.2% Performing Lab: Notes/Report: 6.2% glycohemoglobin 6.2% 5 - 6.5 % P-Comprehensive Metabolic Pa khadijah (CMP) Reviewed date:04/24/2025 10:46:09 AM Interpretation:Glu 108, Cret 1.06, eGFR 55 Performing Lab: Notes/Report: Test performed by [facility] [employer] [address] [place] [address] , [place] [address] Vern Garcia MD, Claim Clinician CLIA: [id number] Sodium 141 135-145 mmol/L Potassium 3.9 3.5-5.3 mmol/L Chloride 104 97-108 mmol/L CO2 24 22-32 mmol/L Glucose 108 65-99 mg/dL BUN 23 8-23 mg/dL Creatinine 1.06 0.50-1.00 mg/dL Calcium 9.8 8.6-10.4 mg/dL eGFR by Creatinine 55 >59 mL/min/1.73m2 Protein 7.6 6.0-8.3 g/dL Albumin 4.6 3.5-5.3 g/dL Alkaline Phosphatase 78 35-121 IU/L ALT (SGPT) 32 <5-47 IU/L AST (SGOT) 32 <5-40 IU/L Bilirubin, Total 0.6 <0.2-1.2 mg/dL A/G Ratio 1.5 1.1-2.5 P-T4 Free (thyroxine) Reviewed date:04/24/2025 10:46:09 AM Interpretation:Normal Performing Lab: Notes/Report: Test performed by [facility] [address] [place] [address] , [place] [address] Vern Garcia MD, Claim Clinician CLIA: [id number] Thyroxine Free (free T4) 1.05 0.86-1.76 ng/dL P-Lipid Panel Reviewed date:04/24/2025 10:46:09 AM Interpretation:Trigs 153, non-HDL 140 Performing Lab: Notes/Report: Test performed by [facility] [address] [place] [address] , [place] [id number] Vern Garcia MD, Claim Clinician CLIA: [id number] Cholesterol 181 <200 mg/dL Triglycerides 153 <150 mg/dL HDL Cholesterol 41 >39 mg/dL Cholesterol / HDL Ratio 4.41 0.00-4.44 Ratio Non-HDL Cholesterol 140 <130 mg/dL LDL Cholesterol (Calculation) 109 <130 mg/dL LDL Cholesterol Levels* Less than 100 mg/dL Optimal 100 to 129 mg/dL Near Optimal/ Above Optimal 130 to 159 mg/dL Borderline High 160 to 189 mg/dL High 190 mg/dL and above Very High * Categories as recommended by the 2004 ATPIII guidelines LDL/HDL Ratio 2.7 <3.3 Ratio LDL Cholesterol Patient History Test Date: 04/23/2024 LDL Results: 121 Units: mg/dL % Change: -11% Test Date: 10/23/2024 LDL Results: 144 Units: mg/dL % Change: +19% Test Date: 04/23/2025 LDL Results: 109 Units: mg/dL % Change: -24% P-TSH Reviewed date:04/24/2025 10:46:09 AM Interpretation:Normal Performing Lab: Notes/Report: Test performed by [facility] [address] [place] [address] [address] C, [place] [address] Vern Garcia MD, Claim Clinician CLIA: [id number] TSH 2.71 0.43-5.25 mU/L P-Microalbumin/Creatinine, R andom Urine Sample Reviewed date:04/24/2025 10:46:09 AM Interpretation:alb/creat 38 Performing Lab: Notes/Report: Test performed by [facility] [address] [place] [address] , [address], [place] [address] Vern Garcia MD, Claim Clinician CLIA: [id number] Albumin/Creatinine Ratio, Urine 38 0-30 ug/m g Microalbumin, Urine, Random 2.9 Creatinine, Urine 75.8 P-Uric Acid Reviewed date:04/24/2025 10:46:09 AM Interpretation:Normal Performing Lab: Notes/Report: Test performed by [facility] [address] [place] [address] , [address], [place] [address] Vern Garcia MD, Claim Clinician CLIA: [id number] Uric Acid 5.7 2.4-7.0 mg/dL REASON FOR VISIT 6 month check Medications Medication SIG (Take, Route, Frequency, Duration) Notes Start Date End Date Status Colchicine-Probenecid 0.5-500 MG TAKE 1 TABLET BY MOUTH DAILY for 90 Active Zithromax Z-Francisco 250 MG as directed Orally daily for 5 days 04/23/2025 Active Allopurinol 100 MG TAKE 1 TABLET BY MOUTH DAILY for 90 Active Valsartan-hydroCHLORO thiazide 160-12.5 MG TAKE 1 TABLET BY MOUTH DAILY for 90 Active Levothyroxine Sodium 50 MCG TAKE 1 TABLET BY MOUTH EVERY DAY for 90 This was sent successfully yesterday. Active Super B-Complex - 1 tab(s) orally once a day Active Zinc 50 MG 1 tab(s) orally once a day Active Magnesium Gluconate 250 MG 1 tab(s) orally 2 times a day Active Vitamin D3 125 MCG (5000 UT) 1 cap(s) orally once a day Active Coenzyme Q10 300 MG 1 cap(s) orally once a day Active Potassium 99 MG 1 tablet Orally Once a day for 30 day(s) Active MegaRed Advanced 4 in 1 - as directed Orally Active Tylenol 8 Hour 650 MG 2 tablets as needed Orally every 8 hrs Active Probiotic - as directed Orally Active Vital Signs Weight 178.6 lbs 04/23/2025 Blood pressure systolic 128 mm Hg 04/23/20 25 Blood pressure diastolic 70 mm Hg 025 Heart Rate 58 /min 04/23/2025 Height 66 in 04/23/2025 BMI 28.82 kg/m2 04/23/2025 Encounters Encounter Location Date Provider Diagnosis Marcus [address] [facility] [address] [facility] [address] [place] [id number] 04/23/2025 Rashel Almanzar Essential hypertensi on I10 ; Pure hypercholesterolemia E78.00 ; Hypothyroidism, unspecified type E03.9 ; Type 2 diabetes mellitus without complication, without long-term current use of insulin E11.9 ; Hyperuricemia E79.0 ; Acute URI J06.9 ; Atypical chest pain R07.89 and Breast cancer screening by mammogram Z12.31 Assessments Encounter Date Diagnosis (ICD Code) Assessment Notes Treatment Notes Treatment Clinical Notes Section Notes 04/23/2025 Essential hypertensi on (ICD-10 - I10) 04/23/2025 Pure hypercholesterolemia (ICD-10 - E78.00) 04/23/2025 Hypothyroidism, unspecified type (ICD-10 - E03.9) 04/23/2025 Type 2 diabetes dragan itus without complication, without long-term current use of insulin (ICD-10 - E11.9) 04/23/2025 Hyperuricemia (ICD-1 0 - E79.0) 04/23/2025 Acute URI (ICD-10 - J06.9) 04/23/2025 Atypical chest pain (ICD-10 - R07.89) 04/23/2025 Breast cancer screen ing by mammogram (ICD-10 - Z12.31) Plan Of Treatment Medication Medication Name Sig Start Date Stop Date Notes Zithromax Z-Francisco 250 MG as directed Orally daily for 5 days 04/23/2025 Pending Test Test Name Order Date Cardiac Stress Test Exercise Cardiolyte 04/23/2025 Next Appt Details Follow Up: via phone to repo rt test results,6 Months, Reason: Provider Name:Rashel miranda, 10/23/2025 09:45:00 AM, [address] [facility] [address] [facility], [address], [place], [id number], Progress Notes * ZAINA PINEDAEDOB:1950 (74 yo F)Acc No.[id number]:04/23/2025 Progress Notes Patient: RYANN CHATMAN Provider: Carmelina Almanzar M.D. :1950 A ge:74 Y S ex:Female Date:04/23/2025 Address:[facility] [address], [place], [id number] Subjective: * Chief Complaints: * 1 . 6 month check. * HPI: C ardiology: 74 year old female presents with c/o Chest Pain P t sts that she has been wearing a FitBit and sts that she feels her heart rate is always low but when she is active and up walking if her heart rate gets above 80-90 she starts having some discomfort in her chest. Pt sts that it not necessarily painful but does make her uncomfortable. c/o Blood Pressure Elevated P t here for 6 mo f/u on hypertension. Pt states she is doing well and does not have any concerns today. c/o Hyperlipidemia P t is fasting today. E ndocrinology: c/o Recent Blood Sugars P t here to f/u on DM 2. c/o Hypothyroidism P t here to f/u. E NT/respiratory: c/o cough P t c/o cough and congestion for about a week. Pt sts that when she takes OTC cold medication it causes her glucose to go up. c/o nasal congestion. c/o chest congestion. U rology: c/o flank pain P t c/o flank pain, she sts that she gets this frequently. Pt denies any burning with urination but sts that she does get flank pain on and off. Pt sts that she does not currently have any pain. * ROS: D ERMATOLOGY: no R binu. [...] removal on toe - Left foot 06/2017, Colonoscopy 2018. * Hospitalization/Major Diagno stic Procedure: D enies Past Hospitalization. * Family History: F ather: 76 yrs, diagnosed with Mental Illness. M other: 69 yrs, diagnosed with Cancer. S iblings: alive, diagnosed with Heart Disease, Cancer, Mental Illness. C carson: alive. 4 brother(s) , 5 sister(s) . [...] orally 2 times a day , Taking Colchicine-Probenecid 0.5-500 MG Tablet TAKE 1 TABLET BY MOUTH DAILY , Taking Levothyroxine Sodium 50 MCG Tablet TAKE 1 TABLET BY MOUTH EVERY DAY , Notes to Pharmacist: This was sent successfully yesterday., Taking Allopurinol 100 MG Tablet TAKE 1 TABLET BY MOUTH DAILY , Taking Valsartan-hydroCHLOROthiazide 160- 12.5 MG Tablet TAKE 1 TABLET BY MOUTH DAILY , Medication List reviewed and reconciled with the patient * Allergies: N .K.D.A. Objective: * Vitals: W t: 178.6, Temp: 97.6, BP: 128/70, HR: 58, Nurse: WMG, Ht: 66, BMI:28.82. * Examination: C ardiology: General Appearance: p leasant, NAD. Heart sounds: R RR, normal S1, S2. Lungs: c lear, no rales or wheezes. Extremities: n o leg edema. Peripheral pulses: 2 plus bilateral. ? E NT/Respiratory: Eyes: P ERRLA, sclera clear. Oral cavity : e rythema without exudate on pharynx. Neck : n o cervical lymphadenopathy. Assessment: * Assessment: 1. E ssential hypertension - I10 (Primary) 2 . P ure hypercholesterolemia - E78.00 3 . H ypothyroidism, unspecified type - E03.9 4 . T ype 2 diabetes mellitus without complication, without long-term current use of insulin - E11.9 & #160; 5 . H yperuricemia - E79.0 6 . A cute URI - J06.9 ?7. A typical chest pain - R07.89 8 . B reast cancer screening by mammogram - Z12.31 Plan: * Treatment: Value Reference Range A /G Ratio 1.5 1.1-2.5 - * A lbumin 4.6 3.5-5.3 - g/dL * A lkaline Phosphatase 78 35-121 - IU/L * A LT (SGPT) 32 <5-47 - IU/L * A ST (SGOT) 32 <5-40 - IU/L * B ilirubin, Total 0.6 <0.2-1.2 - mg/dL * B UN 23 8-23 - mg/dL * C alcium 9.8 8.6-10.4 - mg/dL * C hloride 104 97-108 - mmol/L * C O2 24 22-32 - mmol/L * C reatinine 1.06 H 0.50-1.00 - mg/dL * G lucose 108 H 65-99 - mg/dL * P otassium 3.9 3.5-5.3 - mmol/L * S odium 141 135-145 - mmol/L * P rotein 7.6 6.0-8.3 - g/dL * e GFR by Creatinine 55 L >59 - mL/min/1.73m2 * Katharine Meehan 04/24/2025 10: 46:01 AM EDT > See phone encounter ?LAB: P-Microalbumin/Creatinine, Random Urine Sample (Collection Date & Time - 04/23/2025 08:53 AM)?alb/creat 38* Value Reference Range A lbumin/Creatinine Ratio, Urine 38 H 0-30 - ug /mg * C reatinine, Urine 75.8 - mg/dL * M icroalbumin, Urine, Random 2.9 - mg/dL * Katharine Meehan 04/24/2025 10: 46:01 AM EDT > See phone encounter 2.?Pure hypercholesterolemia?LAB: P-Comprehensive Metabolic Panel (CMP) (Collection Date & Time - 04/23/2025 08:53 AM)?Glu 108, Cret 1.06, eGFR 55* Value Reference Range A /G Ratio 1.5 1.1-2.5 - * A lbumin 4.6 3.5-5.3 - g/dL * A lkaline Phosphatase 78 35-121 - IU/L * A LT (SGPT) 32 <5-47 - IU/L * A ST (SGOT) 32 <5-40 - IU/L * B ilirubin, Total 0.6 <0.2-1.2 - mg/dL * B UN 23 8-23 - mg/dL * C alcium 9.8 8.6-10.4 - mg/dL * C hloride 104 97-108 - mmol/L * C O2 24 22-32 - mmol/L * C reatinine 1.06 H 0.50-1.00 - mg/dL * G lucose 108 H 65-99 - mg/dL * P otassium 3.9 3.5-5.3 - mmol/L * S odium 141 135-145 - mmol/L * P rotein 7.6 6.0-8.3 - g/dL * e GFR by Creatinine 55 L >59 - mL/min/1.73m2 * Katharine Meehan 04/24/2025 10: 46:01 AM EDT > See phone encounter ?LAB: P-Lipid Panel (Collection Date & Time - 04/23/2025 08:53 AM)?Trigs 153, non-HDL 140* Value Reference Range C holesterol / HDL Ratio 4.41 0.00-4.44 - Ratio * C holesterol 181 <200 - mg/dL * H DL Cholesterol 41 >39 - mg/dL * L DL Cholesterol (Calculation) 109 <130 - mg/d L * L DL/HDL Ratio 2.7 <3.3 - Ratio * N on-HDL Cholesterol 140 H <130 - mg/dL * T riglycerides 153 H <150 - mg/dL * Katharine Meehan 04/24/2025 10: 46:01 AM EDT > See phone encounter 3.?Hypothyroidism, unspecified type?LAB: P-T4 Free (thyroxine) (Collection Date & Time - 04/23/2025 08:53 AM)? Normal* Value Reference Range T hyroxine Free (free T4) 1.05 0.86-1.76 - ng/d L * ZoranKatharine 04/24/2025 10: 46:01 AM EDT > See phone encounter ?LAB: P-TSH (Collection Date & Time - 04/23/2025 08:53 AM)?Normal* Value Reference Range T SH 2.71 0.43-5.25 - mU/L * ZoranKatharine 04/24/2025 10: 46:01 AM EDT > See phone encounter 4.?Type 2 diabetes mellitus without complication, without long-term current use of insulin?LAB: P-Comprehensive Metabolic Panel (CMP) (Collection Date & Time - 04/23/2025 08:53 AM)?Glu 108, Cret 1.06, eGFR 55* Value Reference Range A /G Ratio 1.5 1.1-2.5 - * A lbumin 4.6 3.5-5.3 - g/dL * A lkaline Phosphatase 78 35-121 - IU/L * A LT (SGPT) 32 <5-47 - IU/L * A ST (SGOT) 32 <5-40 - IU/L * B ilirubin, Total 0.6 <0.2-1.2 - mg/dL * B UN 23 8-23 - mg/dL * C alcium 9.8 8.6-10.4 - mg/dL * C hloride 104 97-108 - mmol/L * C O2 24 22-32 - mmol/L * C reatinine 1.06 H 0.50-1.00 - mg/dL * G lucose 108 H 65-99 - mg/dL * P otassium 3.9 3.5-5.3 - mmol/L * S odium 141 135-145 - mmol/L * P rotein 7.6 6.0-8.3 - g/dL * e GFR by Creatinine 55 L >59 - mL/min/1.73m2 * Katharine Meehan 04/24/2025 10: 46:01 AM EDT > See phone encounter ?LAB: Glucose (In-House) (Collection Date & Time - 04/23/2025)?127* Value Reference Range b lood glucose 127 74 - 106 mg/dL * Katharine Meehan 04/23/2025 10: 05:32 AM EDT > Katharine Meehan 04/24/2025 10:46:01 AM EDT > See phone encounter ?LAB: Glycohemoglobin A1c (in house) (Collection Date & Time - 04/23/2025)? 6.2%* Value Reference Range g lycohemoglobin 6.2% 5 - 6.5 % * Katharine Meehan 04/23/2025 10: 07:16 AM EDT > Katharine Meehan 04/24/2025 10:46:01 AM EDT > See phone encounter 5.?Hyperuricemia?LAB: P-Uric Acid (Collection Date & Time - 04/23/2025 08:53 AM)?Normal* Value Reference Range U gianna Acid 5.7 2.4-7.0 - mg/dL * Katharine Meehan 04/24/2025 10: 46:01 AM EDT > See phone encounter 6.?Acute URI? Start Zithromax Z-Francisco Tablet, 250 MG, as directed, Orally, daily, 5 days, 6, Refills 0.?LAB: CBC Venipuncture (in house) (Collection Date & Time - 04/23/2025)* Value Reference Range w bc 11.1 3.5 - 10 * l ymph 21.6 15 - 50 * m id 5.2 2 - 15 * g ran 73.2 35 - 80 * r bc 3.61 3.5 - 5.5 * h gb 11.3 11.5 - 16.5 * h ct 33.0 35 - 55 * m cv 91.4 75 - 100 * m ch 31.4 25 - 35 * m chc 34.3 31 - 38 * p latabel 337 100 - 400 * Maryjane Diamond 04/23/2025 09:5 9:27 AM EDT > Provider reviewed results while patient in office. 7.?Atypical chest pain?Imaging: Cardiac Stress Test Exercise Cardiolyte* Rabia López 04/23/2025 09:5 7:09 AM EDT > no auth required as MCR is primary; CPT code 92622; faxed to [facility] Katharine Heath 04/24/2025 10:43:09 AM EDT > scheduled for 04/29 * Procedure Codes: G 2211 Complex e/[place], [address] GLUCOSE TEST, 33338 GLYCATED HEMOGLOBIN TEST, Modifiers: QW , 59446 CBC WITH AUTO DIFF * Follow Up: v ia phone to report test results,6 Months * Billing Information: * Visit Code: 98732 Office Visit, Est Pt., Level 4. * Procedure Codes: G2211 Complex e/[place]. [address] GLUCOSE TEST. 91304 GLYCATED HEMOGLOBIN TEST. Modifiers: QW 58505 CBC WITH AUTO DIFF. * Electronic signature of Dominique Almanzar MD on 04/29/2025 at 07:05 AM EDT Sign off status: Pending * Provider: Carmelina Almanzar M.D. Date: 0 04/23/2025 Generated for Yg cowart/Tre/eTransmitting on: 0 04/29/2025 07:05 AM EDT History and Physical Notes * HPI (History of Present Illness) Category Sub-Category Detail Notes Category Not es ENT/respiratory cough Pt c/o cough and congestion for about a week. Pt sts that when she takes OTC cold medication it causes her glucose to go up chest congestion nasal congestion Endocrinology Recent Blood Sugars Pt here to f/u on DM 2 Hypothyroidism Pt here to f/u Cardiology Chest Pain Pt sts that she has been wearing a FitBit and sts that she feels her heart rate is always low but when she is active and up walking if her heart rate gets above 80-90 she starts having some discomfort in her chest. Pt sts that it not necessarily painful but does make her uncomfortable Blood Pressure Elevated Pt here for 6 mo f/u on hypertension. Pt states she is doing well and does not have any concerns today Hyperlipidemia Pt is fasting today Urology flank pain Pt c/o flank harshil n, she sts that she gets this frequently. Pt denies any burning with urination but sts that she does get flank pain on and off. Pt sts that she does not currently have any pain Examination Category Sub-Category Detail Notes Category Not es ENT/Respiratory Oral cavity : erythema without exudate on pharynx Neck : no cervical lymphade nopathy Eyes: PERRLA, sclera clear Cardiology Lungs: clear, no rales or wheezes Heart sounds: RRR, normal S1, S2 Extremities: no leg edema Peripheral pulses: 2 plus bilateral General Appearance: pleasant, NAD
--- NOTE | 2025-04-29 | CA_ITS ---
APPROVED REPORT Exam: Pharmacologic Technologist: Brunilda Whitney Ht: 5 ft 6 in Wt: 177 lbs BSA: 1.90 m2 Medical History Medications: valsartan, levothyroxine, probenecid, allopurinol Stress Test Details Test: Lexiscan Reason for pharmacologic stress test: changed from exercise stress test due to inability to reach target heart rate. HR Resting HR: 53 bpm Max Heart Rate (APMHR): 146.245319 bpm Max HR Achieved: 90 bpm Target HR (85% APMHR): 124.170615 bpm % of APMHR: 61.64 Recovery HR: 68 bpm BP Resting BP: 166.0/66.0 mmHg Max BP: 166.0/66.0 mmHg Recovery BP: 149.0/59.0 mmHg ECG Resting ECG: SR with PVCs Stress ECG Conclusion Symptoms: SOB with Lexiscan. Arrhythmias/Ectopy: PVCs prior to starting test. PVCs during Lexiscan infusion and in recovery as well. ST-T Changes: Unremarkable with Lexiscan. Electronically signed by : Kindra Glover MD 05/01/2025 15:36:30
--- OUTSIDE RECORDS SUMMARY | 2025-04-29 07:05 | XMS_ITS ---
Author Organization Unknown Vital Signs BpStanding BpSitting BpSupine Date Temperature HeartRate Weight Hei ght Spo2 Respiration Bmi HeadCircumference FieldCount TimeRecorded NeckCircumferen ce WaistCircumference Pulse 114/70 10/23 00:00 :00 97.8 82 175,6.4 0 5,6 28.3 1 6 04/09/2025 09:15:00 114/64 04/23 00:00 :00 97.8 76 176,0 5,6 28.4 0 6 04/09/2025 09:00:00
--- NOTE | 2025-04-29 07:06 | NM_ITS ---
APPROVED REPORT Exam: Nuclear Stress Test Indication: Chest pain, SOB, HTN, Family history Patient Location: Outpatient Stress Tech: Brunilda Nation [place] Tech:Brandi Thakur, ARRT, RT (R)(N) Ht: 5 ft 6 in Wt: 177 lbs Bra Size: 42C HR: 54 bpm BP: 166/66 mmHg BSA: 1.90 m2 TID: 1.10 BMI: 28.5 History: Chest pain, SOB, HTN, Family history Procedure: Patient received 0.4 mg of intravenous Lexiscan, resting heart rate 54 bpm, resting blood pressure 166/66 mmHg, with Lexiscan maximum heart rate achieved was 92 bpm which is % of the maximum predicted heart rate and blood pressure was 151/64 mmHg. With Lexiscan, patient denied any complaint of chest pain. Cardiac Stress and Resting SPECT Images: Cardiac Stress and Resting SPECT images were obtained using technetium 99m Myoview 29.9 mCi stress and 10.22 mCi at rest. Resting and stress imaging in supine and prone positions demonstrate a small sized, mild, reversible perfusion defect in the basal inferior LV wall. Gated imaging demonstrates normal global LV systolic function. LVEF is calculated at 60%. Conclusion: Small sized, mild, reversible perfusion defect in the basal inferior LV wall. Findings are suggestive of reversible ischemia. Gated imaging demonstrates normal global LV systolic function. LVEF is calculated at 60%. Electronically signed by : Kindra Glover MD 04/30/2025 13:23:16
--- OUTSIDE RECORDS SUMMARY | 2025-04-29 07:06 | XMS_ITS | Patient Health Record ---
Author Organization [facility] Address [address] [facility] [address] [place] [id number] Care Team Providers Care Film Loader Name Role Phone Rashel Almanzar Primary Care [...] 55 Performing Lab: Notes/Report: Test performed by [facility] [address] [place] [address] , [address], [place] [address] Vern Garcia MD, Gas Engine Performance Engineer CLIA: [id number] Sodium 141 135-145 mmol/L Potassium 3.9 3.5-5.3 [...] Interpretation:Normal Performing Lab: Notes/Report: Test performed by [facility] [address] [place] [address] , [place] [address] Vern Garcia MD, Gas Engine Performance Engineer CLIA: [id number] Thyroxine Free (free T4) 1.05 0.86-1.76 ng/dL P-Lipid Panel Reviewed date:04/24/2025 10:46:09 AM Interpretation:Trigs 153, non-HDL 140 Performing Lab: Notes/Report: Test performed by [facility] [address] [place] [address] , [address], [place] [address] Vern Garcia MD, Gas Engine Performance Engineer CLIA: [id number] Cholesterol 181 <200 mg/dL Triglycerides 153 <150 [...] Interpretation:Normal Performing Lab: Notes/Report: Test performed by [facility] [address] [facility] [address], [place] [address] Vern Garcia MD, Gas Engine Performance Engineer CLIA: [id number] TSH 2.71 0.43-5.25 mU/L P-Microalbumin/Creatinine, R andom Urine Sample Reviewed date:04/24/2025 10:46:09 AM Interpretation:alb/creat 38 Performing Lab: Notes/Report: Test performed by [facility] [address] [place] [address] , [place] [address] Vern Garcia MD, Gas Engine Performance Engineer CLIA: [id number] Albumin/Creatinine Ratio, Urine 38 0-30 ug/m g Microalbumin, Urine, Random 2.9 Creatinine, Urine 75.8 P-Uric Acid Reviewed date:04/24/2025 10:46:09 AM Interpretation:Normal Performing Lab: Notes/Report: Test performed by [facility] [address] [place] [address] , [place] [address] Vern Garcia MD, Gas Engine Performance Engineer CLIA: [id number] Uric Acid 5.7 2.4-7.0 mg/dL Glucose (In-House) Reviewed date:10/24/2024 03:19:24 PM Interpretation:174 [...] 50 Performing Lab: Notes/Report: Test performed by [facility] [address] [place] [address] , [address], [place] [address] Vern Garcia MD, Gas Engine Performance Engineer CLIA: [id number] Sodium 141 135-145 mmol/L Potassium 3.8 3.5-5.3 [...] 3.3 Performing Lab: Notes/Report: Test performed by [facility] [address] [place] [address] , [address], [place] [address] Vern Garcia MD, Gas Engine Performance Engineer CLIA: [id number] Cholesterol 219 <200 mg/dL Triglycerides 153 <150 [...] Interpretation:Normal Performing Lab: Notes/Report: Test performed by [facility] [address] [facility] , [address], [place] [address] Vern Garcia MD, Gas Engine Performance Engineer CLIA: [id number] Phosphorus 3.9 2.5-4.5 mg/dL Reason For Referral No Information Medications Medication SIG (Take, Route, Frequency, Duration) Notes Start Date End Date Status Zithromax Z-Francisco 250 MG as directed Orally daily for 5 days 04/23/2025 Active Super B-Complex - 1 tab(s) orally once a day Active Zinc 50 MG 1 tab(s) orally once a day Active Potassium 99 MG 1 tablet Orally Once a day for 30 day(s) Active MegaRed Advanced 4 in 1 - as directed Orally Active Magnesium Gluconate 250 MG 1 tab(s) orally 2 times a day Active Colchicine-Probenecid 0.5-500 MG TAKE 1 TABLET BY MOUTH DAILY for 90 Active Vitamin D3 125 MCG (5000 UT) 1 cap(s) orally once a day Active Coenzyme Q10 300 MG 1 cap(s) orally once a day Active Tylenol 8 Hour 650 MG 2 tablets as needed Orally every 8 hrs Active Allopurinol 100 MG TAKE 1 TABLET BY MOUTH DAILY for 90 Active Probiotic - as directed Orally Active Valsartan-hydroCHLORO thiazide 160-12.5 MG TAKE 1 TABLET BY MOUTH DAILY for 90 Active Levothyroxine Sodium 50 MCG TAKE 1 TABLET BY MOUTH EVERY DAY for 90 This was sent successfully yesterday. Active Immunizations Vaccine Route Administration Date Status Comme nts Tetanus Tdap-Adacel (over 7yrs) IM Intramuscular 06/24/2018 Administered Prevnar (PCV20) IM Intramuscular 04/17/2023 Administered Prevnar (PCV13) IM Intramuscular 09/30/2021 Administered PNEUMOVAX 23 VACCINE IM Intramuscular 06/24/2018 Administe red PNEUMOVAX 23 VACCINE IM Intramuscular 10/28/2019 Administe red Fluzone High Dose (65yr and older) IM Intramuscular 08/18/2020 Administered Fluzone High Dose (65yr and older) IM Intramuscular 09/30/2021 Administered Fluzone High Dose (65yr and older) IM Intramuscular 10/10/2022 Administered Fluzone High Dose (65yr and older) IM Intramuscular 08/29/2023 Administered Fluzone High Dose (65yr and older) IM Intramuscular 08/25/2024 Administered COVID 19 Moderna Unknown 12/22/2020 Administered COVID 19 Moderna Unknown 01/19/2021 Administered COVID 19 Moderna Unknown 09/07/2021 Administered COVID 19 Moderna Unknown 06/07/2022 Administered Problems Problem Type SNOMED Code ICD Code Onset Dates Problem Status W/U Status Risk Notes Problem 01421430 Essential hypert ension (I10) Active confirmed Problem 747334930 Abnormal mammogr am (R92.8) Active confirmed Problem Osteopenia (039671417) Osteopenia (M85.80) Active confirmed Problem 15195404 Hyperuricemia (E79.0) Active confirmed Problem 197612376 Lumbar facet arthropathy (M47.816) Active confirmed Problem 601733543 Impaired fasting glucose (R73.01) Active confirmed Problem 468936886 Bandemia (D72.825) Active confirmed Problem 538557718 Lumbago with sci atica, left side (M54.42) Active confirmed Problem 81843492 Lumbar degenerat erlinda disc disease (M51.36) Active confirmed Problem 91638921 Other chronic pa in (G89.29) Active confirmed Problem 505179260 Abnormal mammogr am of left breast (R92.8) Active confirmed Problem 53411223 Hypothyroidism, unspecified type (E03.9) Active confirmed Problem 755312284 Chronic gout wit hout tophus, unspecified cause, unspecified site (M1A.9XX0) Active confirmed Problem 613385852 Lumbar disc claus iation (M51.26) Active confirmed Problem 092433284 Type 2 diabetes mellitus without complication, without long-term current use of insulin (E11.9) Active confirmed Problem 132788969 Pure hypercholesterolemia (E78.00) Active confirmed Problem 281340884 Stage 3a chronic kidney disease (N18.31) Active confirmed Vital Signs Heart Rate 58 /min 04/23/2025 Blood pressure diastolic 70 mm Hg 04/23/2025 Height 66 in 04/23/2025 Blood pressure systolic 128 mm Hg 04/23/2025 Weight 178.6 lbs 04/23/2025 BMI 28.82 kg/m2 04/23/2025 Encounters Encounter Location Date Provider Diagnosis [facility] [address] [place] [id number] 08/25/2024 [place]hel [place] Encounter for immuni zation Z23 [facility] [address] [place] [id number] 10/23/2024 Rashel [place] Type 2 diabetes dragan itus without complication, without long-term current use of insulin E11.9 ; Stage 3a chronic kidney disease N18.31 and Pure hypercholesterolemia E78.00 [facility] [address] [facility] [address] [facility] [address] [place], [place] [phone] 04/23/2025 Rashel [place] Essential hypertensi on I10 ; Pure hypercholesterolemia E78.00 ; Hypothyroidism, unspecified type E03.9 ; Type 2 diabetes mellitus without complication, without long-term current use of insulin E11.9 ; Hyperuricemia E79.0 ; Acute URI J06.9 ; Atypical chest pain R07.89 and Breast cancer screening by mammogram Z12.31 [facility] [address] [facility] [address] [place], [place] [id number] 10/24/2024 Rashel [place] [facility] [address] [facility] 36 [facility] [address] [place], [place] [phone] 04/24/2025 [place] Assess[place] Encounter Date Diagnosis (ICD Code) Assessment Notes Treatment Notes Treatment Clinical Notes Section Notes 10/23/2024 Stage 3a chronic kid norm disease (ICD-10 - N18.31) Discussed starting an SGLT-2 04/23/2025 Essential hypertensi on (ICD-10 - I10) 08/25/2024 Encounter for immunization (ICD-10 - Z23) 10/23/2024 Type 2 diabetes dragan itus without complication, without long-term current use of insulin (ICD-10 - E11.9) 04/23/2025 Pure hypercholesterolemia (ICD-10 - E78.00) 10/23/2024 Pure hypercholesterolemia (ICD-10 - E78.00) 04/23/2025 Hypothyroidism, unspecified type (ICD-10 - E03.9) 04/23/2025 Type 2 diabetes dragan itus without complication, without long-term current use of insulin (ICD-10 - E11.9) 04/23/2025 Hyperuricemia (ICD-1 0 - E79.0) 04/23/2025 Acute URI (ICD-10 - J06.9) 04/23/2025 Atypical chest pain (ICD-10 - R07.89) 04/23/2025 Breast cancer screen ing by mammogram (ICD-10 - Z12.31) Plan Of Treatment Pending Test Test Name Order Date Cardiac Stress Test Exercise Cardiolyte 04/23/2025 Next Appt Details Provider Name:Rashel Thompson ry, 10/23/2025 09:45:00 AM, [address], [address], [place], [id number], Insurance Providers Payer Name Payer Address Payer Phone Subscriber Number Group Number Insured Name Patient Relationship to Insured Coverage Start Date Coverage End Date MEDICARE PART B [address] [address] [id number] [phone] [id number] RYANN PINEDA Self - patient is the insured [facility] [address] [place] [address] [phone] [id number] RYANN PINEDA Self - patient is the insured Medical (General) History Medical History History ICD Code Type 2 Diabetes Hypertension Hypothyroidism Impaired Fasting Glucose Hyperlipidemia Colon Polyps low back pain, see xrays from 2019 Lumbar facet arthropathy Lumbar Disc Disease Surgical History Surgery Date(Month/Year) Bilateral Tubal Ligation Cyst removal on toe - Left foot 06/2017 Colonoscopy 2019 Hospitalization History Reason Date(Month/Year)
[2025-04-29] MEDS: SODIUM CHLORIDE 0.9% 10ML SYR (RAD ONLY) 10 ML IV ×2 (09:31)
[2025-04-29] MEDS: REGADENOSON 0.4MG/5ML SYRINGE 0.4 MG IV (09:31)
[2025-04-29] MEDS: ISOTOPE MYOVIEW (PER STUDY) 1 DOSE IV (09:31)
== END 2025-04-29 23:59 | disposition home or self-care (01) ==
LOC: RAD 07:03
PROVIDERS: PCP Family Medicine; Visit Provider Family Medicine
DX: I49.3 Ventricular premature depolarization (principal); R94.39 Abnormal result of other cardiovascular function study; I10 Essential (primary) hypertension
CPT/HCPCS: 78452; 93017; 93018; A9502; J2785

== ENCOUNTER 2025-05-20 08:26 | Day surgery (SDC) | payer MEDICARE, SELFPAY ==
[2025-05-20] VITALS (13 sets, daily range): BP systolic 130–168; BP diastolic 70–88; PULSE 42–68; RESP 15–22; O2SAT 92–98; BMI 28.7
--- NOTE | 2025-05-20 07:12 | IR_ITS ---
APPROVED REPORT Patient Location: Outpatient Engineer Specialist: MERCY Ramirez RT (R) PROCEDURES Left heart catheterization Left ventriculogram Selective coronary angiogram Drug-eluting stent deployment to the mid and distal dominant right coronary INDICATION Coronary artery disease, Abnormal Myoview, Angina pectoris, Informed consent was obtained prior to the procedure. COMPLICATIONS NONE Estimated Blood Loss: LESS THAN 10 ML TECHNIQUE One percent lidocaine used to anesthetize the right anterior aspect of the wrist. The right radial artery was accessed via the Seldinger technique. A 6 Iranian sheath was placed in the right radial artery. 2.5 mg of Verapamil, 800 mcg of nitroglycerin, 1mg Lidocaine and 5000 U Heparin were given through the arterial sheath. The JL3 catheter was also used to perform left heart catheterization, left ventriculogram and selective coronary angiogram. At the end the diagnostic angiogram therapeutic heparin was administered giving a therapeutic ACT and the guide catheter was placed in the right coronary followed by Choice PT extra-support wire placed distally. Primary stenting could not be performed either with passage of a 3 mm noncompliant balloon. Because of this a guide liner was advanced which allowed for more aggressive delivery of a 3 mm x 12 mm noncompliant balloon deployed at 24 jana reducing the stenosis. This then allowed passage of a 4 mm x 38 mm [place] frontier stent placed in the mid to distal segment and deployed at 18 jana. A 4 mm x 15 mm balloon was deployed at 24 jana in an area which was not expanded as well as proximally. This failed to expand the area therefore a 4.5 x 8 mm noncompliant balloon was deployed at 24 jana in 3 different areas in order to post dilate giving excellent angiographic results. SIRISHA-3 flow was present before and after the procedure. At the end the procedure the apparatus was removed the sheath was removed and hemostasis was achieved using TR banding patient was transferred to the postop putting in stable addition ANGIOGRAPHIC RESULTS The left main artery Is patent but appears to have diffuse 30% narrowing The left anterior descending artery Has proximal 20% calcified stenosis otherwise patent The circumflex artery Gives rise to a large ramus intermedius which has a proximal calcified 60% stenosis followed by an eccentric 40% stenosis. The circumflex artery itself has mild 10% luminal regularities The right coronary artery Large and dominant with a mid vessel calcified 70% followed by an eccentric calcified 90% stenosis with additional distal 40% stenosis The SOUSA ventriculogram reveals Preserved 60% The left ventricular end-diastolic pressure 20 mmHg IMPRESSION Critical disease in the dominant right coronary artery as described above Successful stenting of the mid to distal dominant right coronary critical disease reduced to less than 10% with 1 drug-eluting stent Persistent moderate to severe stenosis in a large proximal ramus intermedius Normal ejection fraction Elevated LVEDP PLAN 1. Plavix and aspirin 2. Medical management for coronary disease 3. If patient continues to experience angina pectoris it would be reasonable to bring her back to the Professional Benefits Sales [facility]ant and undergo stenting of the large ramus intermedius 4. May be reasonable to consider stress testing in 6 weeks to determine if the ramus intermedius produces ischemia 5. Cardiac rehabilitation 6. LDL less than 55 to be achieved with high intensity statin 7. Avoidance of tobacco products Electronically signed by : Raphael Falk MD 05/20/2025 11:32:30
[2025-05-20] MEDS: diazePAM 5MG TABLET 5 MG PO (08:49)
[2025-05-20 09:16] LABS: Anion Gap 19.2 mEq/L (5-15); Blood Urea Nitrogen 35 mg/dl (7-17); Calcium 9.8 mg/dl (8.4-10.2); Carbon Dioxide 24 mmol/L (22.0-30.0); Chloride 103 mmol/L (98-107); Creatinine Clearance Estimated 57 mL/min (50-200); Creatinine,Serum 1.10 mg/dl (0.52-1.04); Estimated Glomerular Filt Rate 49 ml/min (>60); GFR (African American) 59 ML/MIN (>60); Glucose 112 mg/dl (74-100); Potassium 4.2 mmoL/L (3.5-5.1); Sodium 142 mmol/L (136-145)
[2025-05-20 10:13] LABS: Hematocrit 33.0 % (37.0-47.0); Hemoglobin 11.1 g/dL (12.2-16.2); Immature Granulocytes % 0.3 %; Mean Corpuscular HGB Conc 33.6 g/dL (31.8-35.4); Mean Corpuscular Hemoglobin 31.2 pg (27.0-31.2); Mean Corpuscular Volume 92.7 fl (81-99); Nucleated Red Blood Cells % 0 %; Red Blood Count 3.56 M/mm3 (4.20-5.40); Red Cell Distribution Width-SD 48.1 fL; White Blood Count 6.3 K/mm3 (4.8-10.8)
[2025-05-20 10:31] LABS: Platelet Count 176 K/mm3 (142-424)
[2025-05-20] MEDS: HEPARIN 1,000 UNITS/ML 10ML VIAL (CATH LAB) 5000 UNIT IV ×2 (10:38→11:23)
[2025-05-20] MEDS: HEPARIN 1,000 UNITS/500ML NS (CATH LAB) 3000 UNIT IV (10:38)
[2025-05-20] MEDS: LIDOCAINE 1% 10ML MDV 10 ML IJ (10:38)
[2025-05-20] MEDS: VERAPAMIL 2.5MG/ML 2ML VIAL 2.5 MG IV (10:38)
[2025-05-20] MEDS: 0.9 % SODIUM CHLORIDE 500 ML 25 ML IV (10:38)
[2025-05-20] MEDS: NITROGLYCERIN 800MCG/8ML SYR (CATH LAB) 800 MCG IA (10:39)
[2025-05-20] MEDS: FENTANYL 100MCG/2ML VIAL 50 MCG IV (11:23)
[2025-05-20] MEDS: MIDAZOLAM HCL 1MG/ML 5ML VIAL 1 MG IV (11:23)
[2025-05-20] MEDS: IOPAMIDOL-370 (76%);100ML BOTTLE 80 ML IV (12:45)
[2025-05-20 12:49] LABS: CATHL Activated Clotting Time > 400 SEC (74-125)
== END 2025-05-20 15:05 | disposition home or self-care (01) ==
PROVIDERS: PCP Family Medicine; Visit Provider Internal Medicine
PROC: 4A023N7 Measurement of Cardiac Sampling and Pressure, Left Heart, Percutaneous Approach (ICD-10-PCS; CPT 93452; principal; 2025-05-20 09:45)
DX: I25.110 Atherosclerotic heart disease of native coronary artery with unstable angina pectoris (principal); R93.1 Abnormal findings on diagnostic imaging of heart and coronary circulation; R94.39 Abnormal result of other cardiovascular function study; I10 Essential (primary) hypertension; E11.9 Type 2 diabetes mellitus without complications; E78.5 Hyperlipidemia, unspecified; E07.9 Disorder of thyroid, unspecified; Z79.82 Long term (current) use of aspirin; Z79.02 Long term (current) use of antithrombotics/antiplatelets; Z79.899 Other long term (current) drug therapy; Z79.890 Hormone replacement therapy; Z95.5 Presence of coronary angioplasty implant and graft
CPT/HCPCS: 93458; C9600; 80048; 85025; 85347; 92928; 99152; 99153; C1725; C1769; C1874; J1200; J1644; J3010; J7040; Q9967

== ENCOUNTER 2025-05-22 07:54 | Outpatient (CLI) | payer MEDICARE, SELFPAY ==
--- OUTSIDE RECORDS SUMMARY | 2025-04-23 05:15 | XMS_ITS ---
Author Organization [facility] [place] Address [address] [facility] [address] [place] [id number] Care Team Providers Care Voip Technician Name Role Phone Rashel Almanzar Primary Care [...] 55 Performing Lab: Notes/Report: Test performed by [employer] [employer] [place] [address] [place] [address] , [place] [address] Vern Garcia MD, Clinical Support Specialist CLIA: [id number] Sodium 141 135-145 mmol/L Potassium 3.9 3.5-5.3 [...] Interpretation:Normal Performing Lab: Notes/Report: Test performed by [email or web address] [address] [place] [address] , [place] [address] Vern Garcia MD, Clinical Support Specialist CLIA: [id number] Thyroxine Free (free T4) 1.05 0.86-1.76 ng/dL P-Lipid Panel Reviewed date:04/24/2025 10:46:09 AM Interpretation:Trigs 153, non-HDL 140 Performing Lab: Notes/Report: Test performed by [email or web address] [address] [place] [address] , [place] [id number] Vern Garcia MD, Clinical Support Specialist CLIA: [id number] Cholesterol 181 <200 mg/dL Triglycerides 153 <150 [...] Interpretation:Normal Performing Lab: Notes/Report: Test performed by [email or web address] [address] [place] [address] Neena Baptiste C, [place] [address] Vern Garcia MD, Clinical Support Specialist CLIA: [id number] TSH 2.71 0.43-5.25 mU/L P-Microalbumin/Creatinine, R andom Urine Sample Reviewed date:04/24/2025 10:46:09 AM Interpretation:alb/creat 38 Performing Lab: Notes/Report: Test performed by [email or web address] [address] [place] [address] , [address], [place] [address] Vern Garcia MD, Clinical Support Specialist CLIA: [id number] Albumin/Creatinine Ratio, Urine 38 0-30 ug/m g Microalbumin, Urine, Random 2.9 Creatinine, Urine 75.8 P-Uric Acid Reviewed date:04/24/2025 10:46:09 AM Interpretation:Normal Performing Lab: Notes/Report: Test performed by [email or web address] [address] [place] [address] , [place] [address] Vern Garcia MD, Clinical Support Specialist CLIA: [id number] Uric Acid 5.7 2.4-7.0 mg/dL Cardiac Stress Test Exercise Cardiolyte Reviewed date:05/01/2025 [...] 04/23/2025 Encounters Encounter Location Date Provider Diagnosis [facility] [address] [place], [place] [id number] 04/23/2025 Rashel Almanzar Essential hypertensi on I10 [...] Orall y daily; Duration: 5 days 04/23/2025 Pending Test Test Name Order Date Mammogram 04/23/2025 Next Appt Details Follow Up: via phone to repo rt test results,6 Months, Reason: Provider Name:Rashel Thompson , 10/23/2025 09:45:00 AM, [address], [address], [place], [place], [id number], Progress Notes * ZAINA PINEDAEDOB:1950 (74 yo F)Acc No.[id number]:04/23/2025 Progress Notes Patient: RYANN CHATMAN Provider: Carmelina Almanzar M.D. :1950 A ge:74 Y S ex:Female Date:04/23/2025 Address:[facility] [address], [facility] Subjective: * Chief Complaints: * 1 . [...] by mammogram - Z12.31 9 . B RI 28.0-28.9,adult - Z68.28 1 0. S tage [...] required as MCR is primary; CPT code 34414; faxed to [facility] SchedulingKatharine Meehan 04/24/2025 10:43:09 AM EDT > scheduled for [...] to radiology. 8.?Breast cancer screening by mammogram?Imaging: Mammogram* Rabia López 04/29/2025 10:4 7:07 AM EDT > faxed to [facility] Scheduling * Procedure Codes: G 2211 Complex e/[place], [address] GLUCOSE TEST, 36756 GLYCATED HEMOGLOBIN TEST, Modifiers: QW , 40166 CBC WITH AUTO DIFF, 1036F TOBACCO NON-USER, 3044F HG A1C LEVEL LT 7.0%, G8420 BMI<30 AND >=22 CALC & DOCU, G8950 PREHTN/HTN BP DOC INDCD F/U DOC, G8752 MOST RECENT SYSTOLIC BP < 140MM HG, G8754 MOST RECENT DIASTOLIC BP < 90MM HG * Follow Up: v ia phone to report test results,6 Months * Images: Billing Information: * Visit Code: 10299 Office Visit, Est Pt., Level 4. * Procedure Codes: G2211 Complex e/[place]. [address] GLUCOSE TEST. 50332 GLYCATED HEMOGLOBIN TEST. Modifiers: QW 98660 CBC WITH AUTO DIFF. 1036F TOBACCO NON-USER. 3044F HG A1C LEVEL LT 7.0%. G8420 BMI<30 AND >=22 CALC & DOCU. G8950 PREHTN/HTN BP DOC INDCD F/U DOC. G8752 MOST RECENT SYSTOLIC BP < 140MM HG. G8754 MOST RECENT DIASTOLIC BP < 90MM HG. * Electronic signature of Dominique Almanzar MD on 05/22/2025 at 07:55 AM EDT Sign off status: Pending * Provider: Carmelina Almanzar M.D. Date: 0 04/23/2025 Generated for Yg cowart/Tre/Ianitting on: 0 05/22/2025 07:55 AM EDT History and Physical Notes * [...]
--- OUTSIDE RECORDS SUMMARY | 2025-05-01 04:45 | XMS_ITS ---
Author Organization [place] Address [address] [facility] [address] [place] [id number] Care Team Providers Care Slate Cutter Operator Name Role Phone Rashel Almanzar Primary Care [...] López 2024 09:46:16 AM > fax[facility] to [facility] CardiologyMaribel Brynn 05/12/2025 10:41:42 AM > spoke with Tequila and patient is scheduled for 05/13/2025 Referral Priority Routine REASON FOR VISIT Test results Encounters Encounter Location Date Provider Diagnosis [facility] [facility] [address] [place] [id number] 05/01/2025 Rashel Almanzar Atypical chest pain R07.89 [...] [address], [address], [place], [place], [id number], Progress Notes * ZAINA PINEDAEDOB:1950 (74 yo F)Acc No.[id number]:05/01/2025 Patient: RYANN CHATMAN :1950 A ge:74 Y S ex:Female Address:[facility] [address], [place], [address] Subjective: * Chief Complaints: * T est [...] Date: Generated for Yg cowart/Tre/eTransmitting on: 0 05/22/2025 07:56 AM EDT Consultation Request Notes Referral Date Referring Provider Referred Provider Not es 05/05/2025 Rashel Almanzar Matthew
--- OUTSIDE RECORDS SUMMARY | 2025-05-04 05:01 | XMS_ITS ---
Author Organization [place] Address [address] [facility] 36 [facility] [address] [place] [phone] Care Team Providers Care Hay Baler Name Role Phone Rashel Almanzar Primary Care Provider REASON FOR VISIT due Bone density, colonoscopy Encounters Encounter Location Date Provider Diagnosis [facility] [address] [facility] 36 [facility] [address] [place] [id number] 05/04/2025 Rashel Almanzar Screening for osteoporosis Z13.820 Assessments Encounter Date Diagnosis (ICD Code) Assessment Notes Treatment Notes Treatment Clinical Notes Section Notes 05/04/2025 Screening for osteoporosis (ICD-10 - Z13.820) Plan Of Treatment Next Appt Details Provider Name:Rashel Thompson ry, 10/23/2025 09:45:00 AM, [address] [facility] 36 [facility], [address], [place], [id number], Progress Notes * ZAINA PINEDAEDOB:1950 (74 yo F)Acc No.[id number]:05/04/2025 Patient: Jacques NANCY RYANN :1950 A ge:74 Y S ex:Female Address:[address] [place], [address] Subjective: * Chief Complaints: * d ue Bone density, colonoscopy * Medical History: * Surgical History: * Hospitalization/Major Diagno stic Procedure: * Medications: Objective: * Vitals: * Physical Examination: Assessment: * Assessment: 1. S creening for osteoporosis - Z13.820 (Primary) Plan: * Treatment: * Procedure Codes: * true * Date: Generated for Yg cowart/Tre/Erum on: 0 05/22/2025 07:56 AM EDT
--- OUTSIDE RECORDS SUMMARY | 2025-05-22 07:57 | XMS_ITS | Patient Health Record ---
[facility] Address [address] [facility] [address] [place] [id number] Care Team Providers Care Administration Dean Name Role Phone Rashel Almanzar Primary Care Provider [phone] Allergies No Known Allergies Results Component Value [...] 55 Performing Lab: Notes/Report: Test performed by [employer], [employer] [address] [place] [address] , [address], [place] [address] Vern Garcia MD, Channel Development Director CLIA: [id number] Sodium 141 135-145 mmol/L Potassium 3.9 3.5-5.3 [...] Interpretation:Normal Performing Lab: Notes/Report: Test performed by [employer] [address] [place] [address] , [place] [address] Vern Garcia MD, Channel Development Director CLIA: [id number] Thyroxine Free (free T4) 1.05 0.86-1.76 ng/dL P-Lipid Panel Reviewed date:04/24/2025 10:46:09 AM Interpretation:Trigs 153, non-HDL 140 Performing Lab: Notes/Report: Test performed by [employer] [address] [place] [address] , [address], [place] [address] Vern Garcia MD, Channel Development Director CLIA: [id number] Cholesterol 181 <200 mg/dL Triglycerides 153 <150 [...] Interpretation:Normal Performing Lab: Notes/Report: Test performed by [employer] [address] [facility] [address], [place] [address] Vern Garcia MD, Channel Development Director CLIA: [id number] TSH 2.71 0.43-5.25 mU/L P-Microalbumin/Creatinine, R andom Urine Sample Reviewed date:04/24/2025 10:46:09 AM Interpretation:alb/creat 38 Performing Lab: Notes/Report: Test performed by [employer] [address] [place] [address] , [place] [address] Vern Garcia MD, Channel Development Director CLIA: [id number] Albumin/Creatinine Ratio, Urine 38 0-30 ug/m g Microalbumin, Urine, Random 2.9 Creatinine, Urine 75.8 P-Uric Acid Reviewed date:04/24/2025 10:46:09 AM Interpretation:Normal Performing Lab: Notes/Report: Test performed by [employer] [address] [place] [address] , [place] [address] Vern Garcia MD, Channel Development Director CLIA: [id number] Uric Acid 5.7 2.4-7.0 mg/dL Cardiac Stress Test Exercise Cardiolyte Reviewed date:05/01/2025 08:47:11 AM Interpretation:Not Performed Performing Lab: Notes/Report: Not Performed Lexiscan Reviewed date:05/01/2025 08:46:34 AM Interpretation: Performing Lab: Notes/Report: Glucose (In-House) Reviewed date:10/24/2024 03:19:24 PM Interpretation:174 [...] 50 Performing Lab: Notes/Report: Test performed by [employer] [address] [place] [address] , [address], [place] [address] Vern Garcia MD, Channel Development Director CLIA: [id number] Sodium 141 135-145 mmol/L Potassium 3.8 3.5-5.3 [...] 3.3 Performing Lab: Notes/Report: Test performed by [employer] [address] [place] [address] , [address], [place] [address] Vern Garcia MD, Channel Development Director CLIA: [id number] Cholesterol 219 <200 mg/dL Triglycerides 153 <150 [...] Interpretation:Normal Performing Lab: Notes/Report: Test performed by [employer], [employer] [address] [facility] , [address], [place] [address] Vern Garcia MD, Channel Development Director CLIA: [id number] Phosphorus 3.9 2.5-4.5 mg/dL Reason For Referral Diagnosis 1 Atypical chest pain (R07.89) Diagnosis 2 Abnormal cardiovascu lar stress test (R94.39) Referral Organization [facility] Referring Provider First Name Rashel Referring Provider Last Name Jenelle Referring Provider Speciality Family [facility] ctice Referred Provider Raphael Falk Referred Provider Specialty Cardiovascul ar Disease General Notes Rabia López 2024 09:46:16 AM > faxed to [facility] Cardiology, Rabia López 05/12/2025 10:41:42 AM > spoke with Tequila and patient is scheduled for 05/13/2025 Referral Priority Routine Medications Medication SIG (Take, Route, Frequency, Duration) Notes Start Date End Date Status Zithromax Z-Francisco 250 MG as directed Orally daily; Duration: 5 days 04/23/2025 Active Super B-Complex - [...] TABLET BY MOUTH DAILY; Duration: 90 Active Vitamin D3 125 MCG (5000 UT) 1 cap(s) orally once a day Active Coenzyme Q10 300 MG 1 cap(s) orally once a day Active Tylenol 8 Hour 650 MG 2 tablets as needed Orally every 8 hrs Active Allopurinol 100 MG TAKE 1 TABLET BY MOUTH DAILY; Duration: 90 Active Probiotic - as directed Orally [...] Problem Status W/U Status Risk Notes Problem Essential hypertension (61089295) Essential hypertension (I10) Active confirmed Problem Abnormal mammogram (318643170) Abnormal mammogram (R92.8) Active confirmed Problem Osteopenia (045701314) Osteopenia (M85.80) Active confirmed Problem Hyperuricemia (37394826) Hyperuricemia (E79.0) Active confirmed Problem Arthropathy of lumba r facet joint (524832877) Lumbar facet arthropathy (M47.816) Active confirmed Problem Impaired fasting glucose (804118729) Impaired fasting glucose (R73.01) Active confirmed Problem Bandemia (404510403) Bandemia (D72.825) Active confirmed Problem Sciatica (91360154) Lumbago with sciatica, left side (M54.42) Active confirmed Problem Degeneration of lumbar intervertebral disc (57515820) Lumbar degenerative disc disease (M51.36) Active confirmed Problem Chronic pain (80280338) Other chronic pain (G89.29) Active confirmed Problem Mammography abnormal (557856024) Abnormal mammogram of left breast (R92.8) Active confirmed Problem Hypothyroidism (59521208) Hypothyroidism, unspecified type (E03.9) Active confirmed Problem Chronic gouty arthritis (15901515) Chronic gout without tophus, unspecified cause, unspecified site (M1A.9XX0) Active confirmed Problem Prolapsed lumbar intervertebral disc (148140760) Lumbar disc herniation (M51.26) Active confirmed Problem Type II diabetes mellitus without complication (545251311) Type 2 diabetes mellitus without complication, without long-term current use of insulin (E11.9) Active confirmed Problem Pure hypercholesterolemia (908594329) Pure hypercholesterolemia (E78.00) Active confirmed Problem Chronic kidney disease stage 3A (092161134) Stage 3a chronic kidney disease (N18.31) Active confirmed Vital Signs Heart Rate 58 /min 04/23/2025 Blood pressure diastolic 70 mm Hg 04/23/2025 Height 66 in 04/23/2025 Blood pressure systolic 128 mm Hg 04/23/2025 Weight 178.6 lbs 04/23/2025 BMI 28.82 kg/m2 04/23/2025 Encounters Encounter Location Date Provider Diagnosis [facility] [address], [place] [id number] 08/25/2024 Rashel [place] Encounter for immuni zation Z23 [facility] [address], [place] [id number] 10/23/2024 Rashel [place]th[place] Type 2 diabetes dragan itus without complication, without long-term current use of insulin E11.9 ; Stage 3a chronic kidney disease N18.31 and Pure hypercholesterolemia E78.00 [facility] [address], [place] [id number] 04/23/2025 Rashel Hawthorne Essential hypertensi on I10 ; Pure hypercholesterolemia E78.00 ; Hypothyroidism, unspecified type E03.9 ; Type 2 diabetes mellitus without complication, without long-term current use of insulin E11.9 ; Hyperuricemia E79.0 ; Acute URI J06.9 ; Atypical chest pain R07.89 ; Breast cancer screening by mammogram Z12.31 ; BMI 28.0-28.9,adult Z68.28 and Stage 3a chronic kidney disease N18.31 [facility] [address], [place] [id number] 10/24/2024 Rashel Hawthorne [facility] [address], [place] [id number] 04/24/2025 Rashel [place]thorne [facility] [address] [place] [id number] 05/01/2025 Rashel [place]thorne Atypical chest pain R07.89 and Abnormal cardiovascular stress test R94.39 [facility] [address] [place] [id number] 05/04/2025 Rashel Hawthorne Screening for osteop orosis Z13.820 Assessments Encounter Date Diagnosis (ICD Code) Assessment Notes Treatment Notes Treatment Clinical Notes Section Notes 08/25/2024 Encounter for immunization (ICD-10 - Z23) 05/01/2025 Atypical chest pain (ICD-10 - R07.89) 05/01/2025 Abnormal cardiovascu lar stress test (ICD-10 - R94.39) 05/04/2025 Screening for osteoporosis (ICD-10 - Z13.820) 04/23/2025 Essential hypertensi on (ICD-10 - I10) 04/23/2025 Pure hypercholesterolemia (ICD-10 - E78.00) 10/23/2024 Type 2 diabetes dragan itus without complication, without long-term current use of insulin (ICD-10 - E11.9) 10/23/2024 Stage 3a chronic kid norm disease (ICD-10 - N18.31) Discussed starting an SGLT-2 10/23/2024 Pure hypercholesterolemia (ICD-10 - E78.00) 04/23/2025 [...] disease (ICD-10 - N18.31) Plan Of Treatment Pending Test Test Name Order Date Mammogram 04/23/2025 Next Appt Details Provider Name:Rashel Thompson ry, 10/23/2025 09:45:00 AM, [address], [address], [place], [id number], Insurance Providers Payer Name Payer Address Payer Phone Subscriber Number Group Number Insured Name Patient Relationship to Insured Coverage Start Date Coverage End Date MEDICARE PART B [address] [address] [place] [id number] [phone] [id number] RYANN PINEDA Self - patient is the insured [facility] [address] [place] [address] [phone] [id number] RYANN PINEDA Self - patient is the [...]
--- NOTE | 2025-05-22 08:14 | MM_ITS ---
PROCEDURE INFORMATION: Exam: MG Bilateral Screening 3D Mammography Exam date and time: 05/22/2025 8:16 AM Age: 74 years old Clinical indication: Screening examination. Her mother had breast cancer. TECHNIQUE: Imaging protocol: Bilateral Screening tomosynthesis and 2D mammography including computer-aided detection (CAD) when performed. COMPARISON: 1. MG MM DIG SCREENING MAMM BI W/CAD 05/21/2024 8:22 AM 2. MG MM DIG SCREENING MAMM BI W/CAD 08/05/2021 3:19 PM 3. MG MM DIG MAMM BI DX W/CAD 07/05/2020 12:55 PM 4. MG MM DIG MAMM DX UNILAT LT CAD 01/01/2020 1:14 PM FINDINGS: MAMMOGRAPHY: Breast composition: There are scattered areas of fibroglandular density. Mass: None. Architectural distortion: None. Calcifications: No suspicious calcifications. Asymmetric density: None. Skin thickening: None. Axillary adenopathy: None. IMPRESSION: No mammographic evidence of malignancy. Annual screening is recommended unless otherwise clinically indicated. ASSESSMENT: BI-RADS Category 1: Negative.
[2025-05-22 08:49] LABS: Hematocrit 34.1 % (37.0-47.0); Hemoglobin 11.6 g/dL (12.2-16.2); Immature Granulocytes % 0.1 %; Mean Corpuscular HGB Conc 34.0 g/dL (31.8-35.4); Mean Corpuscular Hemoglobin 31.5 pg (27.0-31.2); Mean Corpuscular Volume 92.7 fl (81-99); Nucleated Red Blood Cells % 0 %; Platelet Count 282 K/mm3 (142-424); Red Blood Count 3.68 M/mm3 (4.20-5.40); Red Cell Distribution Width-SD 47.8 fL; White Blood Count 7.0 K/mm3 (4.8-10.8)
[2025-05-22 10:01] LABS: Anion Gap 17.0 mEq/L (5-15); Blood Urea Nitrogen 32 mg/dl (7-17); Calcium 10.0 mg/dl (8.4-10.2); Carbon Dioxide 26 mmol/L (22.0-30.0); Chloride 103 mmol/L (98-107); Creatinine,Serum 1.10 mg/dl (0.52-1.04); Estimated Glomerular Filt Rate 49 ml/min (>60); GFR (African American) 59 ML/MIN (>60); Glucose 120 mg/dl (74-100); Potassium 4.0 mmoL/L (3.5-5.1); Sodium 142 mmol/L (136-145)
== END 2025-05-22 23:59 | disposition home or self-care (01) ==
LOC: RAD 07:54
PROVIDERS: Internal Medicine; PCP Family Medicine; Visit Provider Family Medicine
DX: Z12.31 Encounter for screening mammogram for malignant neoplasm of breast (principal); R92.323 Mammographic fibroglandular density, bilateral breasts; I25.10 Atherosclerotic heart disease of native coronary artery without angina pectoris
CPT/HCPCS: 36415; 77063; 77067; 80048; 85025

== ENCOUNTER 2025-06-10 09:07 | Outpatient (CLI) | payer MEDICARE, SELFPAY ==
--- OUTSIDE RECORDS SUMMARY | 2025-04-23 05:15 | XMS_ITS ---
Author Organization [facility] Address [address] [facility] [address] [place] [id number] Care Team Providers Care Consulting Services Project Manager Name Role Phone Rashel Almanzar Primary Care Provider [phone] Allergies No Known Allergies Results Component Value [...] 55 Performing Lab: Notes/Report: Test performed by [employer], [employer] [address] [place] [address] , [place] [address] Vern Garcia MD, Flight Nurse CLIA: [id number] Sodium 141 135-145 mmol/L Potassium 3.9 3.5-5.3 [...] Interpretation:Normal Performing Lab: Notes/Report: Test performed by [facility] [address] [place] [address] , [place] [address] Vern Garcia MD, Flight Nurse CLIA: [id number] Thyroxine Free (free T4) 1.05 0.86-1.76 ng/dL P-Lipid Panel Reviewed date:04/24/2025 10:46:09 AM Interpretation:Trigs 153, non-HDL 140 Performing Lab: Notes/Report: Test performed by [facility] [address] [place] [address] , [place] [id number] Vern Garcia MD, Flight Nurse CLIA: [id number] Cholesterol 181 <200 mg/dL Triglycerides 153 <150 [...] Interpretation:Normal Performing Lab: Notes/Report: Test performed by [facility] [address] [place] [address] [address] Baptiste C, [place] [address] Vern Garcia MD, Flight Nurse CLIA: [id number] TSH 2.71 0.43-5.25 mU/L P-Microalbumin/Creatinine, R andom Urine Sample Reviewed date:04/24/2025 10:46:09 AM Interpretation:alb/creat 38 Performing Lab: Notes/Report: Test performed by [facility] [address] [place] [address] , [address], [place] [address] Vern Garcia MD, Flight Nurse CLIA: [id number] Albumin/Creatinine Ratio, Urine 38 0-30 ug/m g Microalbumin, Urine, Random 2.9 Creatinine, Urine 75.8 P-Uric Acid Reviewed date:04/24/2025 10:46:09 AM Interpretation:Normal Performing Lab: Notes/Report: Test performed by [facility] [address] [place] [address] , [place] [address] Vern Garcia MD, Flight Nurse CLIA: [id number] Uric Acid 5.7 2.4-7.0 mg/dL Mammogram Reviewed [...] 04/23/2025 Encounters Encounter Location Date Provider [facility] [address] [id number] 04/23/2025 Rashel Almanzar Essential hypertensi on I10 [...] (ICD-10 - E03.9) 04/23/2025 Type 2 diabetes dargan itus without complication, without long-term current use [...] [address], [address], [place], [place], [id number], Progress Notes * ZAINA PINEDAEDOB:1950 (74 yo F)Acc No.[id number]:04/23/2025 Progress Notes Patient: RYANN CHATMAN Provider: Carmelina Almanzar M.D. :1950 A ge:74 Y S ex:Female Date:04/23/2025 Address:[facility] [address], [place], [place] Subjective: * Chief Complaints: * 1 [...] by mammogram - Z12.31 9 . B [place] 28.0-28.9,adult - Z68.28 1 0. S tage [...] required as MCR is primary; CPT code 10267; faxed to [facility] Katharine Heath 04/24/2025 10:43:09 AM EDT > [...] 10:4 7:07 AM EDT > faxed to [facility] SchedulingKing, Kaylah 05/27/2025 01:16:04 PM EDT > LM for pt to return callKing, Kaylah 05/27/2025 01:19:27 PM EDT > Pt informed * Procedure Codes: G 2211 Complex e/[place], [address] GLUCOSE TEST, 89430 GLYCATED HEMOGLOBIN TEST, Modifiers: QW , 72351 CBC WITH AUTO DIFF, 1036F TOBACCO NON-USER, 3044F HG A1C LEVEL LT 7.0%, G8420 BMI<30 AND >=22 CALC & DOCU, G8950 PREHTN/HTN BP DOC INDCD F/U DOC, G8752 MOST RECENT SYSTOLIC BP < 140MM HG, G8754 MOST RECENT DIASTOLIC BP < 90MM HG * Follow Up: v ia phone to report test results,6 Months * Images: Billing Information: * Visit Code: 98090 Office Visit, Est Pt., Level 4. * Procedure Codes: G2211 Complex e/[place]. [address] GLUCOSE TEST. 64782 GLYCATED HEMOGLOBIN TEST. Modifiers: QW 19870 CBC WITH AUTO DIFF. 1036F TOBACCO NON-USER. 3044F HG A1C LEVEL LT 7.0%. G8420 BMI<30 AND >=22 CALC & DOCU. G8950 PREHTN/HTN BP DOC INDCD F/U DOC. G8752 MOST RECENT SYSTOLIC BP < 140MM HG. G8754 MOST RECENT DIASTOLIC BP < 90MM HG. * Electronic signature of Dominique Almanzar MD on 06/10/2025 at 09:10 AM EDT Sign off status: Pending * Provider: Carmelina Almanzar M.D. Date: 0 04/23/2025 Generated for Yg cowart/Stephanieg/eTransmitting on: 0 06/10/2025 09:10 AM EDT History and Physical Notes * [...]
--- OUTSIDE RECORDS SUMMARY | 2025-05-01 04:45 | XMS_ITS ---
Author Organization [facility] Address [address] [facility] [address] [place] [id number] Care Team Providers Care Scale Mechanic Name Role Phone Rashel Almanzar Primary Care Provider Reason For Referral Diagnosis 1 Atypical chest pain (R07.89) Diagnosis 2 Abnormal cardiovascu lar stress test (R94.39) Referral Organization [facility] Referring Provider First Name Rashel Referring Provider Last Name Jenelle Referring Provider Speciality Family Pra ctice Referred Provider Raphael Falk Referred Provider Specialty Cardiovascul ar Disease General Notes Rabia López 2024 09:46:16 AM > faxed to [facility] CardiologyMaribel Brynn 05/12/2025 10:41:42 AM > spoke with Tequila and patient is scheduled for 05/13/2025 Referral Priority Routine REASON FOR VISIT Test results Encounters Encounter Location Date Provider Diagnosis [facility] [address] [facility] [address] [facility] [address] [place] [id number] 05/01/2025 Rashel Almanzar Atypical chest pain R07.89 and Abnormal cardiovascular stress test R94.39 Assessments Encounter Date Diagnosis (ICD Code) Assessment Notes Treatment Notes Treatment Clinical Notes Section Notes 05/01/2025 Atypical chest pain (ICD-10 - R07.89) 05/01/2025 Abnormal cardiovascular stress test (ICD-10 - R94.39) Plan Of Treatment Referrals Referral Date Details 05/05/2025 05/05/2025Raphael Next Appt Details Provider Name:Rashel Thompson ry, 10/23/2025 09:45:00 AM, [address], [address], [place], [place], [phone], Progress Notes * ZAINA PINEDAEDOB:1950 (74 yo F)Acc No.[id number]:05/01/2025 Patient: RYANN CHATMAN :1950 A ge:74 Y S ex:Female Address:[facility] [address], [place], [address] Subjective: * Chief Complaints: * T est results * Medical History: * Surgical History: * Hospitalization/Major Diagno stic Procedure: * Medications: Objective: * Vitals: * Physical Examination: Assessment: * Assessment: 1. A typical chest pain - R07.89 (Primary) 2 . A bnormal cardiovascular stress test - R94.39 Plan: * Treatment: 2. A bnormal cardiovascular stress test Referral To:Raphael Falk Cardiovascular Disease Reason: * Procedure Codes: * true * Date: Generated for Yg cowart/Tre/eTransmitting on: 0 06/10/2025 09:10 AM EDT Consultation Request Notes Referral Date Referring Provider Referred Provider Not es 05/05/2025 Rashel Almanzar Matthew
--- OUTSIDE RECORDS SUMMARY | 2025-05-04 05:01 | XMS_ITS ---
Author Organization Ra[facility] Address [address] [facility] 36 [facility] [address] [place] [id number] Care Team Providers Care Transport Nurse Name Role Phone Rashel Almanzar Primary Care Provider [phone] REASON FOR VISIT due Bone density, colonoscopy Encounters Encounter Location Date Provider Diagnosis [facility] [address] [facility] 36 [facility] [address] [place] [id number] 05/04/2025 Rashel Almanzar Screening for osteoporosis Z13.820 Assessments Encounter Date Diagnosis (ICD Code) Assessment Notes Treatment Notes Treatment Clinical Notes Section Notes 05/04/2025 Screening for osteoporosis (ICD-10 - Z13.820) Plan Of Treatment Next Appt Details Provider Name:Rashel Thompson ry, 10/23/2025 09:45:00 AM, [address] [facility] 36 [facility], [address], [place], [id number], Progress Notes * ZAINA PINEDAEDOB:1950 (74 yo F)Acc No.[id number]:05/04/2025 Patient: Jacques NANCY RYANN :1950 A ge:74 Y S ex:Female Address:[address] [place], [address] Subjective: * Chief Complaints: * d ue Bone density, colonoscopy * Medical History: * Surgical History: * Hospitalization/Major Diagno stic Procedure: * Medications: Objective: * Vitals: * Physical Examination: Assessment: * Assessment: 1. S creening for osteoporosis - Z13.820 (Primary) Plan: * Treatment: * Procedure Codes: * true * Date: Generated for Yg cowart/Tre/Erum on: 06/10/2025 09:10 AM EDT
--- NOTE | 2025-06-10 | XR_ITS ---
FINAL REPORT TECHNIQUE: Bone densitometry calculations of the lumbar spine and bilateral hips were obtained. CLINICAL HISTORY: Screening for Osteoporosis COMPARISON: 06/11/2024 FINDINGS: Using L1-4, the bone mineral density of the spine is 1.024 g/cm2, corresponding to T-score of -0.2 and a Z score of 2.2. This is within the range of normal. Using the left hip, the bone mineral density of the femoral neck is 0.831 g/cm2, corresponding to a T-score of -0.9 and a Z-score of 0.8. This is within the range of normal. Using the right hip, the bone mineral density of the femoral neck is 0.910 g/cm?, corresponding to a T-score of -0.3 and a Z-score of 1.4. This is within the range of normal. NOTE: T-score: Standard deviation compared with peak bone mass of young adult mean. *Following the recommendations of the International Society of Bone densitometry, classification of hip BMD is based on the lower of two T-scores; total hip or femoral neck. IMPRESSION: 1. Bone mineral density of the lumbar spine within the range of normal. 2. Bone mineral density of the bilateral femoral necks within the range of normal. Reviewed, Interpreted and Dictated by Michaela Dixon MD Transcribed by Martha Waterman Authenticated and [facility]
--- OUTSIDE RECORDS SUMMARY | 2025-06-10 09:11 | XMS_ITS | Patient Health Record ---
Author Organization [facility] Address [address] [facility] [address] [place] [id number] Care Team Providers Care Milker Machine Name Role Phone Rashel Almanzar Primary Care Provider [phone] Allergies No Known Allergies Results Component Value [...] 55 Performing Lab: Notes/Report: Test performed by [employer] [employer] [address] [place] [address] , [address], [place] [address] Vern Garcia MD, [employer] CLIA: [id number] Sodium 141 135-145 mmol/L Potassium 3.9 3.5-5.3 [...] Interpretation:Normal Performing Lab: Notes/Report: Test performed by [employer] [address] [place] [address] , [place] [address] Vern Garcia MD, [employer]er CLIA: [id number] Thyroxine Free (free T4) 1.05 0.86-1.76 ng/dL P-Lipid Panel Reviewed date:04/24/2025 10:46:09 AM Interpretation:Trigs 153, non-HDL 140 Performing Lab: Notes/Report: Test performed by [employer] [address] [place] [address] , [address], [place] [address] Vern Garcia MD, [employer]er CLIA: [id number] Cholesterol 181 <200 mg/dL Triglycerides 153 <150 [...] Interpretation:Normal Performing Lab: Notes/Report: Test performed by [employer] [address] [facility] [address], [place] [address] Vern Garcia MD, [employer]er CLIA: [id number] TSH 2.71 0.43-5.25 mU/L P-Microalbumin/Creatinine, R andom Urine Sample Reviewed date:04/24/2025 10:46:09 AM Interpretation:alb/creat 38 Performing Lab: Notes/Report: Test performed by [employer] [address] [place] [address] , [place] [address] Vern Garcia MD, [employer]er CLIA: [id number] Albumin/Creatinine Ratio, Urine 38 0-30 ug/m g Microalbumin, Urine, Random 2.9 Creatinine, Urine 75.8 P-Uric Acid Reviewed date:04/24/2025 10:46:09 AM Interpretation:Normal Performing Lab: Notes/Report: Test performed by [employer] [address] [place] [address] , [facility] [place] [address] Vern Garcia MD, [employer] Ro[employer]er CLIA: [id number] Uric Acid 5.7 2.4-7.0 mg/dL Mammogram Reviewed date:05/27/2025 01:19:32 PM Interpretation:Negative Performing Lab: Notes/Report: Negative result neg Cardiac Stress Test Exercise Cardiolyte Reviewed date:05/01/2025 08:47:11 AM Interpretation:Not Performed Performing Lab: Notes/Report: Not Performed Lexiscan Reviewed date:05/01/2025 08:46:34 AM Interpretation: Performing Lab: Notes/Report: P-Phosphorus Reviewed date:10/24/2024 03:19:24 PM Interpretation:Normal Performing Lab: Notes/Report: Test performed by [employer] [address] [place] [address] , [address], [place] [address] Vern Garcia MD, [employer]er CLIA: [id number] Phosphorus 3.9 2.5-4.5 mg/dL P-Lipid Panel Reviewed date:10/24/2024 03:19:24 PM Interpretation:Chol 219, Trig 153, chol/hdl 4.98, non hdl 175, ldl 144, ldl/hdl 3.3 Performing Lab: Notes/Report: Test performed by [employer] [address] [place] [address] , [address] [place] [address] Vern Garcia MD, [employer]er NICKY: [id number] Cholesterol 219 <200 mg/dL Triglycerides 153 <150 [...] Results: 144 Units: mg/dL % Change: +19% P-Comprehensive Metabolic Pa khadijah (CMP) Reviewed date:10/24/2024 03:19:24 PM Interpretation:CO2 19, glu 120, BUN 28, Creat 1.15, eGFR 50 Performing Lab: Notes/Report: Test performed by [facility], [address] , [address], [place] [address] Vern Garcia MD, [employer]er CLIA: [id number] Sodium 141 135-145 mmol/L Potassium 3.8 3.5-5.3 [...] 0.6 <0.2-1.2 mg/dL A/G Ratio 1.5 1.1-2.5 Glycohemoglobin A1c (in hous e) Reviewed date:10/24/2024 03:19:24 PM Interpretation:6.2% Performing Lab: Notes/Report: 6.2% glycohemoglobin 6.2% 5 - 6.5 % CBC Venipuncture (in house) Reviewed date:10/24/2024 03:19:24 [...] - 38 platlet 256 100 - 400 Glucose (In-House) Reviewed date:10/24/2024 03:19:24 PM Interpretation:174 Performing Lab: Notes/Report: 174 blood glucose 174 74 - 106 mg/dL Reason For Referral Diagnosis 1 Atypical chest pain (R07.89) Diagnosis 2 Abnormal cardiovascu lar stress test (R94.39) Referral Organization [facility] Referring Provider First Name Rashel Referring Provider Last Name Jenelle Referring Provider Speciality Family Matheus shelton Referred Provider Raphael Falk Referred Provider Specialty Cardiovascul ar Disease General Notes Rabia López 2024 09:46:16 AM > faxed to [facility] Cardiology, Rabia López 05/12/2025 10:41:42 AM > [...] Vaccine Route Administration Date Status Comme nts COVID 19 Moderna Unknown 12/22/2020 Administered COVID 19 Moderna Unknown 01/19/2021 Administered COVID 19 Moderna Unknown 09/07/2021 Administered COVID 19 Moderna Unknown 06/07/2022 Administered Fluzone High Dose (65yr and older) IM Intramuscular 08/18/2020 Administered Fluzone High Dose (65yr and older) IM Intramuscular 09/30/2021 Administered Fluzone High Dose (65yr and older) IM Intramuscular 10/10/2022 Administered Fluzone High Dose (65yr and older) IM Intramuscular 08/29/2023 Administered Fluzone High Dose (65yr and older) IM Intramuscular 08/25/2024 Administered PNEUMOVAX 23 VACCINE IM Intramuscular 06/24/2018 Administe red PNEUMOVAX 23 VACCINE IM Intramuscular 10/28/2019 Administe red Prevnar (PCV13) IM Intramuscular 09/30/2021 Administered Prevnar (PCV20) IM Intramuscular 04/17/2023 Administered Tetanus Tdap-Adacel (over 7yrs) IM Intramuscular 06/24/2018 Administered Problems Problem Type SNOMED Code ICD Code Onset Dates Problem Status W/U Status Risk Notes Problem Essential hypertension (93340677) Essential hypertension (I10) Active confirmed Problem Abnormal mammogram (352952608) Abnormal mammogram (R92.8) Active confirmed Problem Osteopenia (584529585) Osteopenia (M85.80) Active confirmed Problem Hyperuricemia (45017743) Hyperuricemia (E79.0) Active confirmed Problem Arthropathy of lumba r facet joint (858463141) Lumbar facet arthropathy (M47.816) Active confirmed Problem Impaired fasting glucose (367498361) Impaired fasting glucose (R73.01) Active confirmed Problem Bandemia (161503908) Bandemia (D72.825) Active confirmed Problem Sciatica (92073936) Lumbago with sciatica, left side (M54.42) Active confirmed Problem Degeneration of lumbar intervertebral disc (31273976) Lumbar degenerative disc disease (M51.36) Active confirmed Problem Chronic pain (17961002) Other chronic pain (G89.29) Active confirmed Problem Mammography abnormal (725195686) Abnormal mammogram of left breast (R92.8) Active confirmed Problem Hypothyroidism (53342155) Hypothyroidism, unspecified type (E03.9) Active confirmed Problem Chronic gouty arthritis (27984168) Chronic gout without tophus, unspecified cause, unspecified site (M1A.9XX0) Active confirmed Problem Prolapsed lumbar intervertebral disc (965316646) Lumbar disc herniation (M51.26) Active confirmed Problem Type II diabetes mellitus without complication (498374019) Type 2 diabetes mellitus without complication, without long-term current use of insulin (E11.9) Active confirmed Problem Pure hypercholesterolemia (056326586) Pure hypercholesterolemia (E78.00) Active confirmed Problem Chronic kidney disease stage 3A (262464524) Stage 3a chronic kidney disease (N18.31) Active confirmed Vital Signs Heart Rate 58 /min 04/23/2025 Blood pressure diastolic 70 mm Hg 04/23/2025 Height 66 in 04/23/2025 Blood pressure systolic 128 mm Hg 04/23/2025 Weight 178.6 lbs 04/23/2025 BMI 28.82 kg/m2 04/23/2025 Encounters Encounter Location Date Provider [facility] [address] [place], [place] [id number] 08/25/2024 [place] Encounter for immuni zation Z23 [facility] [address] [place] [id number] 10/23/2024 [place]hel [place] Type 2 diabetes dragan itus without complication, without long-term current use of insulin E11.9 ; Stage 3a chronic kidney disease N18.31 and Pure hypercholesterolemia E78.00 [facility] [address] [place] [id number] 04/23/2025 Rashel [place] Essential hypertensi on I10 ; Pure hypercholesterolemia E78.00 ; Hypothyroidism, unspecified type E03.9 ; Type 2 diabetes mellitus without complication, without long-term current use of insulin E11.9 ; Hyperuricemia E79.0 ; Acute URI J06.9 ; Atypical chest pain R07.89 ; Breast cancer screening by mammogram Z12.31 ; BMI 28.0-28.9,adult Z68.28 and Stage 3a chronic kidney disease N18.31 [facility] [address] [place], [place] [id number] 10/24/2024 Rashel [place] [facility] [address] [place], [place] [id number] 04/24/2025 Rashel [place] [facility] [address] [place], [place] [id number] 05/01/2025 Rashel [place] Atypical chest pain R07.89 and Abnormal cardiovascular stress test R94.39 [facility] [address] [place], [place] [id number] 05/04/2025 Rashel [place] Screening for osteop orosis Z13.820 [facility] [address] [place], [place] [id number] 05/27/2025 Rashel [place] Assessments Encounter Date Diagnosis (ICD Code) Assessment [...] E11.9) 04/23/2025 Pure hypercholesterolemia (ICD-10 - E78.00) 05/01/2025 Atypical chest pain (ICD-10 - R07.89) 05/01/2025 Abnormal cardiovascu lar stress test (ICD-10 - R94.39) 05/04/2025 Screening for osteoporosis (ICD-10 - Z13.820) 10/23/2024 Pure hypercholesterolemia (ICD-10 - E78.00) 04/23/2025 [...] Treatment Pending Test Test Name Order Date DEXA Hip and Spine 05/27/2025 Next Appt Details Provider Name:Rashel Thompson ry, 10/23/2025 09:45:00 AM, [address], [address], [place], [place], [id number], Insurance Providers Payer Name Payer Address Payer Phone Subscriber Number Group Number Insured Name Patient Relationship to Insured Coverage Start Date Coverage End Date MEDICARE PART B [address] [address] [place] [address] [id number] RYANN PINEDA Self - patient is the insured [facility] [address] [place] [address] [phone] [id number] RYANN PINEDA Self - patient is the [...]
== END 2025-06-10 23:59 | disposition home or self-care (01) ==
LOC: RAD 09:09
PROVIDERS: PCP Family Medicine; Visit Provider Family Medicine
DX: Z13.820 Encounter for screening for osteoporosis (principal)
CPT/HCPCS: 77080

== ENCOUNTER 2025-06-10 12:47 | Outpatient (RCR) | payer MEDICARE, SELFPAY | END 2025-06-24 08:00 | disposition home or self-care (01) | LOC: CR 12:47 | PROVIDERS: Visit Provider Internal Medicine | DX: Z48.812 Encounter for surgical aftercare following surgery on the circulatory system (principal); Z95.5 Presence of coronary angioplasty implant and graft | CPT/HCPCS: 93798 ==

== ENCOUNTER 2025-07-09 11:18 | Outpatient (CLI) | payer MEDICARE, SELFPAY ==
--- OUTSIDE RECORDS SUMMARY | 2025-04-23 05:15 | XMS_ITS ---
Author Organization [facility] Address [address] [facility] [address] [place] [id number] Care Team Providers Care Fish And Wildlife Scientific Aid Name Role Phone Rashel Almanzar Primary Care Provider Allergies No Known Allergies Results Component Value [...] 55 Performing Lab: Notes/Report: Test performed by [employer], [place] [address] [place] [address] , [place] [address] Vern Garcia MD, Mill Operator Helper CLIA: [id number] Sodium 141 135-145 mmol/L Potassium 3.9 3.5-5.3 [...] Interpretation:Normal Performing Lab: Notes/Report: Test performed by [employer] [address] [place] [address] , [place] [address] Vern Garcia MD, Mill Operator Helper CLIA: [id number] Thyroxine Free (free T4) 1.05 0.86-1.76 ng/dL P-Lipid Panel Reviewed date:04/24/2025 10:46:09 AM Interpretation:Trigs 153, non-HDL 140 Performing Lab: Notes/Report: Test performed by [employer] [address] [place] [address] , [place] [id number] Vern Garcia MD, Mill Operator Helper CLIA: [id number] Cholesterol 181 <200 mg/dL Triglycerides 153 <150 [...] Interpretation:Normal Performing Lab: Notes/Report: Test performed by [employer] [address] [place] [address] [address] Baptiste C, [place] [address] Vern Garcia MD, Mill Operator Helper CLIA: [id number] TSH 2.71 0.43-5.25 mU/L P-Microalbumin/Creatinine, R andom Urine Sample Reviewed date:04/24/2025 10:46:09 AM Interpretation:alb/creat 38 Performing Lab: Notes/Report: Test performed by [employer] [address] [place] [address] , [address], [place] [address] Vern Garcia MD, Mill Operator Helper CLIA: [id number] Albumin/Creatinine Ratio, Urine 38 0-30 ug/m g Microalbumin, Urine, Random 2.9 Creatinine, Urine 75.8 P-Uric Acid Reviewed date:04/24/2025 10:46:09 AM Interpretation:Normal Performing Lab: Notes/Report: Test performed by [employer] [address] [place] [address] , [place] [address] Vern Garcia MD, Mill Operator Helper CLIA: [id number] Uric Acid 5.7 2.4-7.0 mg/dL Mammogram Reviewed date:05/27/2025 01:19:32 PM Interpretation:Negative Performing Lab: Notes/Report: Negative result neg Cardiac Stress Test Exercise Cardi[employer]te Reviewed date:05/01/2025 08:47:11 AM Interpretation:Not Performed Performing Lab: Notes/Report: Not Performed REASON FOR VISIT 6 month check Medications Medication SIG (Take, Route, Frequency, Duration) Notes Start Date End Date Status Colchicine-Probenecid 0.5-500 MG TAKE 1 TABLET BY MOUTH DAILY; Duration: 90 Active Zithromax Z-Francisco 250 MG as directed Orally daily; Duration: 5 days 04/23/2025 Active Allopurinol 100 MG TAKE 1 TABLET BY MOUTH DAILY; Duration: 90 Active Valsartan-hydroCHLORO thiazide 160-12.5 MG TAKE 1 TABLET BY MOUTH DAILY; Duration: 90 Active Levothyroxine Sodium 50 MCG TAKE 1 TABLET BY MOUTH EVERY DAY; Duration: 90 This was sent successfully yesterday. Active [...] 99 MG 1 tablet Orally Once a day; Duration: 30 day(s) Active MegaRed Advanced 4 in 1 - as directed Orally Active Tylenol 8 Hour 650 MG 2 tablets as needed Orally every 8 hrs Active Probiotic - as directed Orally Active Vital Signs Blood pressure systolic 128 mm Hg 04/23/20 25 Blood pressure diastolic 70 mm Hg 025 Heart Rate 58 /min 04/23/2025 Height 66 in 04/23/2025 Weight 178.6 lbs 04/23/2025 BMI 28.82 kg/m2 04/23/2025 Encounters Encounter Location Date Provider Diagnosis [facility] [address] [place], [place] [id number] 04/23/2025 Rashel Almanzar Essential hypertensi on I10 ; Pure hypercholesterolemia E78.00 ; Hypothyroidism, unspecified type E03.9 ; Type 2 diabetes mellitus without complication, without long-term current use of insulin E11.9 ; Hyperuricemia E79.0 ; Acute URI J06.9 ; Atypical chest pain R07.89 ; Breast cancer screening by mammogram Z12.31 ; BMI 28.0-28.9,adult Z68.28 and Stage 3a chronic kidney disease N18.31 Assessments Encounter Date Diagnosis (ICD Code) Assessment [...] screen ing by mammogram (ICD-10 - Z12.31) 04/23/2025 BMI 28.0-28.9,adult (ICD-10 - Z68.28) 04/23/2025 Stage 3a chronic kid norm disease (ICD-10 - N18.31) Plan Of Treatment Medication Medication Name Sig Start Date Stop Date Notes Zithromax Z-Francisco 250 MG as directed Orall y daily; Duration: 5 days 04/23/2025 Next Appt Details Follow Up: via phone to repo rt test results,6 Months, Reason: Provider Name:Rashel Thompson , 10/23/2025 09:45:00 AM, [address], [address], [place], [place], [id number], Progress Notes * ZAINA PINEDAEDOB:1950 (74 yo F)Acc No.[id number]:04/23/2025 Progress Notes Patient: RYANN CHATMAN Provider: Carmelina Almanzar M.D. :1950 A ge:74 Y S ex:Female Date:04/23/2025 Address:[facility] [address], [place], [place] Subjective: * Chief Complaints: * 1 . [...] Polyps, Low back pain, see xrays from 2020, Lumbar facet arthropathy, Lumbar Disc Disease. * Surgical History: B ilateral Tubal Ligation , Cyst removal on toe - Left foot 06/2017, Colonoscopy 2018. * Hospitalization/Major Diagno stic Procedure: D enies Past Hospitalization. * Family History: F ather: 76 yrs, diagnosed with Mental Illness. M other: 69 yrs, diagnosed with Cancer. S iblings: alive, diagnosed with Heart Disease, Cancer, Mental Illness. C hildren: alive. 4 brother(s) , 5 [...] Temp: 97.6, BP: 128/70, HR: 58, Nurse: VINEET, Ht: 66, BMI:28.82. * Examination: C ardiology: General Appearance: p leasant, NAD. H eart sounds: R RR, normal S1, S2. L ungs: c lear, no rales or wheezes. E xtremities: n o leg edema. P eripheral pulses: 2 plus bilateral. E NT/Respiratory: Eyes: P ERRLA, sclera clear. O ral cavity : e rythema without exudate on pharynx. N peggy : n o cervical lymphadenopathy. Assessment: * [...] reast cancer screening by mammogram - Z12.31 9 . B NV 28.0-28.9,adult - Z68.28 1 0. S tage 3a chronic kidney disease - N18.31 Plan: * Treatment: Value Reference Range A [...] T4) 1.05 0.86-1.76 - ng/d L * Katharine Meehan 04/24/2025 10: 46:01 AM EDT > See phone encounter ?LAB: P-TSH (Collection Date & Time - 04/23/2025 08:53 AM)?Normal* Value Reference Range T SH 2.71 0.43-5.25 - mU/L * Katharine Meehan 04/24/2025 10: 46:01 AM [...] chc 34.3 31 - 38 * p latlet 337 100 - 400 * Maryjane Diamond 04/23/2025 09:5 9:27 AM EDT > Provider reviewed results while patient in office. 7.?Atypical chest pain?Imaging: Cardiac Stress Test Exercise Cardiolyte (Performed Date - 05/01/2025)?Not Performed* Rabia López 04/23/2025 09:5 7:09 AM EDT > no auth required as MCR is primary; CPT code 49931; faxed to [facility] Katharine Heath 04/24/2025 10:43:09 AM EDT > scheduled for 04/29Katharine Meehan 04/29/2025 09:09:19 AM EDT > Tamara from radiology called stating that pt is unable to do a Exercise Stress Test because she is unable to stand long enough. They requested an order for a Lexiscan and they will do any prior authorization that may be required. Lexiscan was ordered and faxed to radiology. 8.?Breast cancer screening by mammogram?Imaging: Mammogram (Performed Date - 05/22/2025)?Negative* Value Reference Range r esult neg * Rabia López 04/29/2025 10:4 7:07 AM EDT > faxed to [facility] SchedulingKing, Kaylah 05/27/2025 01:16:04 PM EDT > LM for pt to return callKing, Kaylah 05/27/2025 01:19:27 PM EDT > Pt informed * Procedure Codes: G 2211 Complex e/[place], [address] GLUCOSE TEST, 52360 GLYCATED HEMOGLOBIN TEST, Modifiers: QW , 12973 CBC WITH AUTO DIFF, 1036F TOBACCO NON-USER, 3044F HG A1C LEVEL LT 7.0%, G8420 BMI<30 AND >=22 CALC & DOCU, G8950 PREHTN/HTN BP DOC INDCD F/U DOC, G8752 MOST RECENT SYSTOLIC BP < 140MM HG, G8754 MOST RECENT DIASTOLIC BP < 90MM HG * Follow Up: v ia phone to report test results,6 Months * Images: Billing Information: * Visit Code: 12452 Office Visit, Est Pt., Level 4. * Procedure Codes: G2211 Complex e/[place]. [address] GLUCOSE TEST. 18501 GLYCATED HEMOGLOBIN TEST. Modifiers: QW 89248 CBC WITH AUTO DIFF. 1036F TOBACCO NON-USER. 3044F HG A1C LEVEL LT 7.0%. G8420 BMI<30 AND >=22 CALC & DOCU. G8950 PREHTN/HTN BP DOC INDCD F/U DOC. G8752 MOST RECENT SYSTOLIC BP < 140MM HG. G8754 MOST RECENT DIASTOLIC BP < 90MM HG. * Electronic signature of Dominique Almanzar MD on 07/09/2025 at 11:22 AM EDT Sign off status: Pending * Provider: Carmelina Almanzar M.D. Date: 0 04/23/2025 Generated for Yg cowart/Tre/eTransmitting on: 0 07/09/2025 11:22 AM EDT History and Physical Notes * [...]
--- NOTE | 2025-07-09 | CA_ITS ---
APPROVED REPORT Exam: Pharmacologic Technologist: Tiffanie Hammond Ht: 5 ft 6 in Wt: 174 lbs BSA: 1.88 m2 HR: 60 bpm BP: 175/70 mmHg Rhythm: SR, PVC baseline STT abnormalities Medical History Cardiac Risk Factors: HTN, Diabetes (non-insulin) Stress Test Details HR Resting HR: 60 bpm Max Heart Rate (APMHR): 146 bpm Target HR (85% APMHR): 124 bpm Recovery HR: 74 bpm BP Resting BP: 175.0/70.0 mmHg Recovery BP: 165.0/70.0 mmHg ECG Resting ECG: SR, PVC baseline STTT abnormalities Stress ECG Conclusion During lexiscan pt experinced no symptoms. Ventricular couplet/ ventricular bigeminy, PVC noted. Less than .5mm upsloping ST segment changes. Nondiagnostic ECG lexiscan. Electronically signed by : Kindra Glover MD 07/10/2025 00:47:07
--- OUTSIDE RECORDS SUMMARY | 2025-07-09 11:23 | XMS_ITS | Patient Health Record ---
[facility] Organization [facility] Address [address] [facility] [address] [place] [id number] Care Team Providers Care Ed Transporter Name Role Phone Rashel Almanzar Primary Care [...] 55 Performing Lab: Notes/Report: Test performed by [facility] [address] [place] [address] , [address], [place] [address] Vern Garcia MD, Brokerage Branch Manager CLIA: [id number] Sodium 141 135-145 mmol/L Potassium 3.9 3.5-5.3 [...] Interpretation:Normal Performing Lab: Notes/Report: Test performed by [facility] [address] [place] [address] , [place] [address] Vern Garcia MD, Brokerage Branch Manager CLIA: [id number] Thyroxine Free (free T4) 1.05 0.86-1.76 ng/dL P-Lipid Panel Reviewed date:04/24/2025 10:46:09 AM Interpretation:Trigs 153, non-HDL 140 Performing Lab: Notes/Report: Test performed by [facility] [address] [place] [address] , [address], [place] [address] Vern Garcia MD, Brokerage Branch Manager CLIA: [id number] Cholesterol 181 <200 mg/dL Triglycerides 153 <150 [...] Interpretation:Normal Performing Lab: Notes/Report: Test performed by [facility] [address] [facility] [address], [place] [address] Vern Garcia MD, Brokerage Branch Manager CLIA: [id number] TSH 2.71 0.43-5.25 mU/L P-Microalbumin/Creatinine, R andom Urine Sample Reviewed date:04/24/2025 10:46:09 AM Interpretation:alb/creat 38 Performing Lab: Notes/Report: Test performed by [facility] [address] [place] [address] , [place] [address] Vern Garcia MD, Brokerage Branch Manager CLIA: [id number] Albumin/Creatinine Ratio, Urine 38 0-30 ug/m g Microalbumin, Urine, Random 2.9 Creatinine, Urine 75.8 P-Uric Acid Reviewed date:04/24/2025 10:46:09 AM Interpretation:Normal Performing Lab: Notes/Report: Test performed by [facility] [address] [place] [address] , [facility] [place] [address] Vern Garcia MD, Brokerage Branch Manager CLIA: [id number] Uric Acid 5.7 2.4-7.0 mg/dL Mammogram Reviewed date:05/27/2025 01:19:32 PM Interpretation:Negative Performing Lab: Notes/Report: Negative result neg Cardiac Stress Test Exercise Cardiolyte Reviewed date:05/01/2025 08:47:11 AM Interpretation:Not Performed Performing Lab: Notes/Report: Not Performed P-Phosphorus Reviewed date:10/24/2024 03:19:24 PM Interpretation:Normal Performing Lab: Notes/Report: Test performed by [facility] [address] [place] [address] , [place] [address] Vern Garcia MD, Brokerage Branch Manager CLIA: [id number] Phosphorus 3.9 2.5-4.5 mg/dL P-Lipid Panel Reviewed date:10/24/2024 03:19:24 PM Interpretation:Chol 219, Trig 153, chol/hdl 4.98, non hdl 175, ldl 144, ldl/hdl 3.3 Performing Lab: Notes/Report: Test performed by [facility] [address] [place] [address] , [place] [address] Vern Garcia MD, Brokerage Branch Manager CLIA: [id number] Cholesterol 219 <200 mg/dL Triglycerides 153 <150 [...] 50 Performing Lab: Notes/Report: Test performed by [facility] [address] [place] [address] , [address], [place] [address] Vern Garcia MD, Brokerage Branch Manager CLIA: [id number] Sodium 141 135-145 mmol/L Potassium 3.8 3.5-5.3 [...] blood glucose 174 74 - 106 mg/dL [facility] Reviewed date:05/01/2025 08:46:34 AM Interpretation: Performing Lab: Notes/Report: [facility] Reviewed date:06/12/2025 02:56:28 PM Interpretation:Normal Performing Lab: Notes/Report: Normal Dexa results normal Reason For Referral Diagnosis 1 Atypical chest pain (R07.89) Diagnosis 2 Abnormal cardiovascu lar stress test (R94.39) Referral Organization [facility] Referring Provider First Name Rashel Referring Provider Last Name Jenelle Referring Provider Speciality [facility] cat Referred Provider Raphael Falk Referred Provider Specialty Cardiovascul ar Disease General Notes Raiba López 2024 09:46:16 AM > faxed to [facility] CardiologyMaribel Brynn 05/12/2025 10:41:42 AM > spoke with Tequila and patient is scheduled for 05/13/2025 Referral Priority Routine Medications Medication SIG (Take, Route, Frequency, Duration) Notes Start Date End Date Status Zithromax Z-Francisco 250 MG as directed Orally daily; Duration: 5 days 04/23/2025 Active Colchicine-Probenecid 0.5-500 MG 1 tablet Orally daily; Duration: 90 days Active Super B-Complex - 1 tab(s) orally [...] W/U Status Risk Notes Problem Essential hypertension (07818318) Essential hypertension (I10) Active confirmed Problem Abnormal mammogram (761226407) Abnormal mammogram (R92.8) Active confirmed Problem Osteopenia (759444511) Osteopenia (M85.80) Active confirmed Problem Hyperuricemia (19899129) Hyperuricemia (E79.0) Active confirmed Problem Arthropathy of lumba r facet joint (822068254) Lumbar facet arthropathy (M47.816) Active confirmed Problem Impaired fasting glucose (500008692) Impaired fasting glucose (R73.01) Active confirmed Problem Bandemia (614989627) Bandemia (D72.825) Active confirmed Problem Sciatica (33928109) Lumbago with sciatica, left side (M54.42) Active confirmed Problem Degeneration of lumbar intervertebral disc (95673489) Lumbar degenerative disc disease (M51.36) Active confirmed Problem Chronic pain (03527480) Other chronic pain (G89.29) Active confirmed Problem Mammography abnormal (997423363) Abnormal mammogram of left breast (R92.8) Active confirmed Problem Hypothyroidism (67437780) Hypothyroidism, unspecified type (E03.9) Active confirmed Problem Chronic gouty arthritis (56219204) Chronic gout without tophus, unspecified cause, unspecified site (M1A.9XX0) Active confirmed Problem Prolapsed lumbar intervertebral disc (412228173) Lumbar disc herniation (M51.26) Active confirmed Problem Type II diabetes mellitus without complication (871116790) Type 2 diabetes mellitus without complication, without long-term current use of insulin (E11.9) Active confirmed Problem Pure hypercholesterolemia (560953348) Pure hypercholesterolemia (E78.00) Active confirmed Problem Chronic kidney disease stage 3A (420921397) Stage 3a chronic kidney disease (N18.31) Active confirmed Vital Signs Heart Rate 58 /min 04/23/2025 Blood pressure diastolic 70 mm Hg 04/23/2025 Height 66 in 04/23/2025 Blood pressure systolic 128 mm Hg 04/23/2025 Weight 178.6 lbs 04/23/2025 BMI 28.82 kg/m2 04/23/2025 Encounters Encounter Location Date Provider Diagnosis [facility] [address] [facility] [address] [place], [place] [id number] 08/25/2024 Rashel Hereford Encounter for immuni zation Z23 [facility] [address] [facility] [address] [place], [place] [id number] 10/23/2024 Rashel Hereford Type 2 diabetes dragan itus without complication, without long-term current use of insulin E11.9 ; Stage 3a chronic kidney disease N18.31 and Pure hypercholesterolemia E78.00 [facility] [address] [place], [place] [id number] 04/23/2025 Rashel Hereford Essential hypertensi on I10 ; Pure hypercholesterolemia E78.00 ; Hypothyroidism, unspecified type E03.9 ; Type 2 diabetes mellitus without complication, without long-term current use of insulin E11.9 ; Hyperuricemia E79.0 ; Acute URI J06.9 ; Atypical chest pain R07.89 ; Breast cancer screening by mammogram Z12.31 ; BMI 28.0-28.9,adult Z68.28 and Stage 3a chronic kidney disease N18.31 [facility] [address] [place], [place] [id number] 10/24/2024 Rashel Hereford [facility] [address] [place], [place] [id number] 04/24/2025 Rashel Hereford [facility] [address] [place], [place] [id number] 05/01/2025 Rashel Hereford Atypical chest pain R07.89 and Abnormal cardiovascular stress test R94.39 [facility] [address] [place], [place] [id number] 05/04/2025 Rashel Hereford Screening for osteop orosis Z13.820 [facility] [address] [place], [place] [id number] 05/27/2025 Rashel Hereford Assessments Encounter Date Diagnosis (ICD Code) Assessment [...] disease (ICD-10 - N18.31) Plan Of Treatment Next Appt Details Provider Name:Rashel Thompson ry, 10/23/2025 09:45:00 AM, [address], [address], [place], [place], [id number], Insurance Providers Payer Name Payer Address Payer Phone Subscriber Number Group Number Insured Name Patient Relationship to Insured Coverage Start Date Coverage End Date MEDICARE PART B [address] [address] [place] [address] [id number] RYANN PINEDA Self - patient is the insured [facility] [employer] [address] [place] [address] [phone] [id number] RYANN PINEDA Self - patient is the [...]
--- NOTE | 2025-07-09 11:30 | NM_ITS ---
APPROVED REPORT Exam: Nuclear Stress Test Indication: cad, htn, dibetes,f/u s/p heart cath. lv function, look at ramus intermedius Patient Location: Outpatient Stress Tech: Tiffanie PEREIRA Tech:Reyna Flemingrington ARRIvon RT(R)(N) Ht: 5 ft 5 in Wt: 173 lbs Bra Size: c HR: 69 bpm BP: 175/70 mmHg BSA: 1.86 m2 TID: 1.05 BMI: 28.7 History: cad, htn, dibetes prior cath on 05-20-25, f/u lv function, and look at ramus intermedius Procedure: Patient received 0.4 mg of intravenous Lexiscan, resting heart rate 69 bpm, resting blood pressure 175/70 mmHg, with Lexiscan maximum heart rate achieved was 79 bpm which is % of the maximum predicted heart rate and blood pressure was 166/69 mmHg. With Lexiscan, patient denied any complaint of chest pain. Cardiac Stress and Resting SPECT Images: Cardiac Stress and Resting SPECT images were obtained using technetium 99m Myoview 31.5 mCi stress and 10.05 mCi at rest. Resting and stress imaging in supine and prone positions demonstrate no evidence of fixed or reversible perfusion defects. Gated imaging demonstrates normal global and regional LV systolic function. LVEF is calculated at 59%. Conclusion: No evidence of fixed or reversible perfusion defects. Gated imaging demonstrates normal global and regional LV systolic function. LVEF is calculated at 59%. Electronically signed by : Kindra Glover MD 07/10/2025 00:42:07
[2025-07-09] MEDS: SODIUM CHLORIDE 0.9% 10ML SYR (RAD ONLY) 10 ML IV ×2 (13:14)
[2025-07-09] MEDS: ISOTOPE MYOVIEW (PER STUDY) 1 DOSE IV (13:14)
--- NOTE | 2025-07-09 13:45 | CA_ITS ---
APPROVED REPORT EXAM: Comprehensive 2D, Doppler, and color-flow Echocardiogram Retirement Sales Consultant: Sheyla Chester RT(R) Ht: 5 ft 6 in Wt: 174lbs BSA: 1.88 BP: 163/69 mmHg Indications: CAD, Hypertension, hyperlipidemia, DM 2D Dimensions LVEF (Cintron's) 61.20 % F: 54 - 74 LV Volume 73.40 mL F: 46 - 106 LV Volume Index 38.8 mL/m2 F: 29 - 61 EF AP4 68.60 % EF AP2 46.3 % EF BP 61.2 % GL Strain -16.1 % M-Mode Dimensions RVDd 2.74 cm (0.9-2.6) LA Diam 3.43 cm (1.9-4.0) LVDd 3.69 cm (3.5-5.7) LVDs 2.70 cm (3.5-5.7) IVSd 1.03 cm (0.6-1.1) PWd 0.84 cm (0.6-1.1) EF (Teich) 53.30% FS 26.80% EDV (Teich) 57.80 mL ESV (Teich) 27.00 mL LV Diastology E Decel Time 227 (160-240 msec) E/A Ratio 0.8 Mitral Valve MV E Max Carlitos. 97.0 (40-130 cm/s) MV A Velocity 122.0 (40-130 cm/s) E/A Ratio 0.80 MV PHT 66.0 ms Tricuspid Valve TR P. Velocity 285.00 cm/s Left Ventricle The left ventricle is normal size. Left ventricular systolic function is normal. The left ventricular ejection fraction is within the normal range. There is increased left ventricular wall thickness. There is normal LV segmental wall motion. The left ventricular diastolic function is normal. LVEF is 60% Right Ventricle The right ventricle is normal size. The right ventricular systolic function is normal. Atria The left atrium is mildly dilated. The right atrium is mildly dilated. There is no color Doppler evidence of interatrial shunt. Aortic Valve The aortic valve is mildly thickened. There is no hemodynamically significant aortic valvular stenosis. Trace aortic regurgitation is present. Mitral Valve The mitral valve is normal in structure. No evidence of mitral valve stenosis. Mild mitral regurgitation is present. Tricuspid Valve The tricuspid valve leaflets are thin and pliable. Trace tricuspid regurgitation. There is insufficient TR jet to estimate RVSP. Pulmonic Valve The pulmonary valve is grossly normal in structure. Mild pulmonic valve regurgitation is present. Great Vessels The aortic root is normal in size. IVC is normal in size and collapses >50% with inspiration. Pericardium There is no pericardial effusion. Other Information Study Quality: Fair Conclusion Normal biventricular systolic function. Mild biatrial dilation. Mild MR, mild PI. Electronically signed by : Kindra Glover MD 07/11/2025 16:25:22
== END 2025-07-09 23:59 | disposition home or self-care (01) ==
LOC: RAD 11:19
PROVIDERS: PCP Family Medicine; Visit Provider Nurse Practitioner
DX: I08.8 Other rheumatic multiple valve diseases (principal); I11.9 Hypertensive heart disease without heart failure; I49.3 Ventricular premature depolarization; I49.8 Other specified cardiac arrhythmias; I25.10 Atherosclerotic heart disease of native coronary artery without angina pectoris; Z95.5 Presence of coronary angioplasty implant and graft; E78.5 Hyperlipidemia, unspecified; E11.9 Type 2 diabetes mellitus without complications; R94.31 Abnormal electrocardiogram [ECG] [EKG]
CPT/HCPCS: 78452; 93017; 93018; 93306; A9502; J2785